=== PATIENT | male | born 1945 | race African-American/Black ===

== ENCOUNTER → 2016-09-22 | Outpatient (CLI) | payer OTHER, MEDICAID ==
[2016-06-08 13:45] VITALS: BP 140/70
--- NOTE | 2016-09-22 12:02 | RAD ---
HISTORY: Frontal sinusitis, right side sinus pain Study: Sinuses three view Comparison: None Findings: The frontal, ethmoid, sphenoid, and left maxillary sinuses are clear. There is mucosal thickening li stanton inflammatory in origin in the right maxillary sinus. No air-fluid level is identified. IMPRESSION: Inflammatory mucosal thickening in the right maxillary sinus The remainder of the paranasal sinuses are clear. Reported By:
[2016-09-22 12:16] LABS: BASOPHILS % (AUTO) 0.5 % (0.2-1.0); EOSINOPHILS # (AUTO) 0.3 x10^3/uL (0.0-0.2); EOSINOPHILS % (AUTO) 5.1 % (0.9-2.9); HEMOGLOBIN 11.9 g/dL (13.5-18.0); LYMPHOCYTES # (AUTO) 1.5 X10^3/uL (1.3-2.9); LYMPHOCYTES % (AUTO) 25.6 % (21.0-51.0); MEAN CORPUSCULAR HEMOGLOBIN 28.2 pg (27.0-34.0); MEAN CORPUSCULAR HGB CONC 32.2 g/dL (33.0-35.0); MEAN CORPUSCULAR VOLUME 87.6 fL (80.0-100.0); MONOCYTES # (AUTO) 0.5 x10^3/uL (0.3-0.8); MONOCYTES % (AUTO) 9.1 % (0.0-13.0); NEUTROPHILS # (AUTO) 3.6 x10^3/uL (2.2-4.8); NEUTROPHILS % (AUTO) 59.7 % (42.0-75.0); PLATELET COUNT 191 X10^3/uL (150.0-450.0); RED BLOOD COUNT 4.22 X10^6/uL (4.7-6.0); RED CELL DISTRIBUTION WIDTH 21.7 % (11.6-16.5)
[2016-09-22 12:31] LABS: ALANINE AMINOTRANSFERASE 11 Units/L (12-78); ALBUMIN 3.2 g/dL (3.4-5.0); ALKALINE PHOSPHATASE 99 Units/L (46-116); ASPARTATE AMINO TRANSFERASE 13 Units/L (15-37); BLOOD UREA NITROGEN 10 mg/dL (7-18); CALCIUM 8.2 mg/dL (8.5-10.1); CARBON DIOXIDE 31.5 mmol/L (21-32); CHLORIDE 107 mmol/L (98-107); COR CA(FOR HYPOALB) 8.8 mg/dL (8.5-10.1); GLUCOSE 99 mg/dL (65-99); SODIUM 145 mmol/L (136-145); T4 (THYROXINE) 8.7 ug/dL (4.7-13.3); TOTAL PROTEIN 8.3 g/dL (6.4-8.2); TSH (3RD GENERATION) 0.581 uIU/mL (0.358-3.74); eGFR BLACK RACES > 60 (>60); eGFR NON BLACK RACES > 60 (>60)
[2016-09-22 12:39] LABS: ANISOCYTOSIS 1+; PLATELET MORPHOLOGY COMMENT NORMAL (NORMAL)
[2016-09-22 13:00] LABS: ERYTHROCYTE SEDIMENTATION RATE 30 MM/HOUR (0-15)
== END ==
LOC: LAB 11:22
PROVIDERS: ATTEND Nurse Practitioner Family
DX: J01.80 Other acute sinusitis (principal); R63.4 Abnormal weight loss
CPT/HCPCS: 36415; 70220; 80053; 84436; 84443; 85025; 85652; 86140

== ENCOUNTER → 2016-09-25 | Outpatient (CLI) | payer OTHER, MEDICAID ==
[2016-06-08 13:45] VITALS: BP 140/70
== END ==
LOC: LAB 08:40
PROVIDERS: ATTEND Nurse Practitioner Family
DX: R63.4 Abnormal weight loss (principal)
CPT/HCPCS: 82270; 87045; 87338; 87427; 87493; 87899

== ENCOUNTER → 2016-11-29 | Outpatient (CLI) | payer OTHER, MEDICAID ==
[2016-06-08 13:45] VITALS: BP 140/70
[2016-11-29 08:55] LABS: BASOPHILS % (AUTO) 0.8 % (0.2-1.0); EOSINOPHILS # (AUTO) 0.3 x10^3/uL (0.0-0.2); EOSINOPHILS % (AUTO) 4.3 % (0.9-2.9); HEMATOCRIT 35.9 % (42.0-54.0); HEMOGLOBIN 11.4 g/dL (13.5-18.0); LYMPHOCYTES # (AUTO) 1.4 X10^3/uL (1.3-2.9); LYMPHOCYTES % (AUTO) 23.1 % (21.0-51.0); MEAN CORPUSCULAR HEMOGLOBIN 26.8 pg (27.0-34.0); MEAN CORPUSCULAR HGB CONC 31.7 g/dL (33.0-35.0); MEAN CORPUSCULAR VOLUME 84.4 fL (80.0-100.0); MEAN PLATELET VOLUME 8.4 fL (7.4-11.0); MONOCYTES # (AUTO) 0.5 x10^3/uL (0.3-0.8); MONOCYTES % (AUTO) 7.7 % (0.0-13.0); NEUTROPHILS # (AUTO) 3.8 x10^3/uL (2.2-4.8); NEUTROPHILS % (AUTO) 64.1 % (42.0-75.0); PLATELET COUNT 220 X10^3/uL (150.0-450.0); RED BLOOD COUNT 4.25 X10^6/uL (4.7-6.0); RED CELL DISTRIBUTION WIDTH 17.7 % (11.6-16.5); WHITE BLOOD COUNT 5.9 X10^3/uL (3.6-10.0)
[2016-11-29 09:18] LABS: ALANINE AMINOTRANSFERASE 13 Units/L (12-78); ALBUMIN 3.3 g/dL (3.4-5.0); ALKALINE PHOSPHATASE 102 Units/L (46-116); ASPARTATE AMINO TRANSFERASE 14 Units/L (15-37); BLOOD UREA NITROGEN 16 mg/dL (7-18); CALCIUM 8.6 mg/dL (8.5-10.1); CARBON DIOXIDE 29.2 mmol/L (21-32); CHLORIDE 107 mmol/L (98-107); CHOL/HDL RATIO 1.7 (0.0-5.0); CHOLESTEROL 113 mg/dL (0-200); COR CA(FOR HYPOALB) 9.2 mg/dL (8.5-10.1); GLUCOSE 92 mg/dL (65-99); HDL CHOLESTEROL 65 mg/dL (40-60); SODIUM 144 mmol/L (136-145); T4 (THYROXINE) 10.4 ug/dL (4.7-13.3); TOTAL PROTEIN 8.6 g/dL (6.4-8.2); TRIGLYCERIDES 27 mg/dL (0-150); TSH (3RD GENERATION) 0.928 uIU/mL (0.358-3.74); eGFR BLACK RACES > 60 (>60); eGFR NON BLACK RACES > 60 (>60)
[2016-11-29 09:35] LABS: ERYTHROCYTE SEDIMENTATION RATE 24 MM/HOUR (0-15)
[2016-11-29 10:09] LABS: TOTAL PSA 0.48 ng/mL (0.13-4.0)
== END ==
LOC: LAB 08:04
PROVIDERS: ATTEND Nurse Practitioner Family
DX: E78.4 Other hyperlipidemia (principal); D50.8 Other iron deficiency anemias; I10 Essential (primary) hypertension; R53.83 Other fatigue; M54.2 Cervicalgia
CPT/HCPCS: 36415; 80053; 80061; 82306; 84153; 84436; 84443; 85025; 85652; 86140

== ENCOUNTER → 2016-12-06 | Outpatient (CLI) | payer OTHER, MEDICAID ==
[2016-06-08 13:45] VITALS: BP 140/70
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
== END | disposition home or self-care (01) ==
LOC: RAD 14:12
PROVIDERS: ATTEND Nurse Practitioner Family
DX: M50.23 Other cervical disc displacement, cervicothoracic region (principal); M48.02 Spinal stenosis, cervical region
CPT/HCPCS: 72141

== ENCOUNTER 2016-12-14 08:02 | Day surgery (SDC) | payer OTHER, MEDICAID ==
[2016-12-14] MEDS ORDERED: D5 LR 1000 ML 1,000 ML IV ONE (08:59)
[2016-12-14] MEDS ORDERED: DIPRIVAN VIAL 20 ML ONE (10:49)
[2016-12-14 11:19] VITALS: BP 167/73
== END 2016-12-14 11:23 | disposition home or self-care (01) ==
LOC: SURG1 08:02
PROVIDERS: ATTEND Internal Medicine Gastroenterology
PROC: 0DB68ZX Excision of Stomach, Via Natural or Artificial Opening Endoscopic, Diagnostic (ICD-10-PCS; principal; 2016-12-14 13:45)
PROC: 0DJ08ZZ Inspection of Upper Intestinal Tract, Via Natural or Artificial Opening Endoscopic (ICD-10-PCS; principal; 2016-12-14 13:45)
PROC: 0W3P8ZZ Control Bleeding in Gastrointestinal Tract, Via Natural or Artificial Opening Endoscopic (ICD-10-PCS; principal; 2016-12-14 13:45)
PROC: 0DB88ZX Excision of Small Intestine, Via Natural or Artificial Opening Endoscopic, Diagnostic (ICD-10-PCS; principal; 2016-12-14 13:45)
DX: D50.8 Other iron deficiency anemias (principal); R10.13 Epigastric pain; K29.60 Other gastritis without bleeding; K25.9 Gastric ulcer, unspecified as acute or chronic, without hemorrhage or perforation; K20.8 Other esophagitis; Q27.33 Arteriovenous malformation of digestive system vessel
CPT/HCPCS: A4217; J3490; J7120

== ENCOUNTER → 2017-01-16 | Outpatient (CLI) | payer OTHER, MEDICAID ==
[~2017-01-16] MED LIST: NS 100 ML IV 100 ML IV ONE
[2017-01-16 10:28] LABS: CREATININE 0.83 mg/dL (0.70-1.30)
--- NOTE | 2017-01-16 14:07 | CT ---
HISTORY: Occipital headache. Study: CT brain with and without contrast Comparison: None. Technique: Multiple axial images of the brain were obtained from the skull base to the vertex before and after the administration of IV contrast. Dose reduction techniques including Automated Exposure Control ( AEC) and adjustment of mA and kV were utilized. Findings: Age related cortical atrophy and chronic small vessel ischemic changes. No acute intraparenchymal he morrhage or mass can be identified. No extra-axial fluid collections are seen. No alteration in th e attenuation of the brain parenchyma can be identified to suggest acute or subacute ischemic change . The ventricular system is symmetric and nondilated. Mild mucosal thickening in the visualized par anasal sinuses. The mastoid air cells are clear. Visualized vasculature appears normal. No areas of abnormal contrast enhancement. IMPRESSION: 1. Unremarkable CT of the brain with and without contrast. 2. Sinus disease as above. Reported By:
== END ==
LOC: RAD 09:51
PROVIDERS: ATTEND Nurse Practitioner Family
DX: R51 Headache (principal)
CPT/HCPCS: 36415; 70470; 82565; 84520; A4222

== ENCOUNTER 2017-02-01 03:39 | Emergency (ER) | payer OTHER, MEDICAID ==
[2017-02-01 03:55] VITALS: BMI 20.4
[2017-02-01] MEDS ORDERED: DUONEB 0.5 MG/3 MG NEB ONE (04:04)
[2017-02-01] MEDS ORDERED: SOLU-Medrol 125 MG VIAL IVP ONE (04:04)
--- NOTE | 2017-02-01 04:05 | DR.GENAD ---
HPI - PCP Primary Care Physician: CYNTHIA NESS - Complaint/Symptoms Chief Complaint:: SOB AND COUGH, PT STATES FOR WEEKS, Self Treatment fo Chief Complaint: NONE - Nurses notes reviewed Nurses Notes Review: Yes - Source History Provided: Patient - Mode of Arrival Mode of Arrival: EMS - Timing Onset of Chief Complaint: 02/01/17 Came on: Suddenly - Duration Duration: Constant Duration: Days - Severity Severity: Moderate PMH - PMH Past Medical History: Yes Past Medical History: Hypertension Past Surgical History: No - Family History History of Family Medical Conditions: No - Social History Does patient currently use any type of tobacco product: Yes Have you used tobacco products in the last 12 months: Yes Type of Tobacco Use: Cigarettes Does any household member use tobacco: No Alcohol Use: Occasionally Do you use any recreational Drugs:: No Lives With: Friend Lives Where: Home - infectious screening In the last 2 months have you had wt loss of >10#?: NO Have you had fever, night sweats or hemotysis?: No Have you traveled outside the country in the last 6 months?: No Isolation: Standard ROS - Review of Systems Constitutional: Weakness, Fatigue. negative: Chills, Fever, Loss of Appetite Eyes: No Symptoms Reported. negative: Eye Pain, Discharge ENTM: Nose Congestion. negative: Ear Pain, Nose Discharge, Throat Pain Respiratoy: Productive Cough, Short of Breath, Wheezing. negative: Non- Productive Cough, Hemoptysis Cardiovascular: Chest Pain. negative: Edema, Palpitations Gastrointestinal/Abdominal: No Symptoms Reported. negative: Abdominal Pain, Diarrhea, Nausea, Vomiting Genitourinary: No Symptoms Reported. negative: Dysuria, Frequency, Hematuria Neurological: Headache, Weakness, Dizziness Musculoskeletal: Muscle Pain Integumentary: No Symptoms Reported Hematologic/Lymphatic: No Symptoms Reported Endocrine: No Symptoms Reported All Other Systems: Reviewed and Negative PE - Vital Signs Vitals: Temperature 98.0 F Pulse Rate [Right Brachial] 63 Pulse Rate 67 Respiratory Rate 16 Blood Pressure [Left Arm] 158/72 Blood Pressure 177/97 O2 Sat by Pulse Oximetry 100 - General Limitations: No Limitations General Appearance: Alert - Head Head Exam: Normal Inspection - Eyes Eye exam: Normal Appearance - ENT ENT Exam: Normal External Ear Exam External Ear Exam: Normal External Inspection TM/Canal Exam: Bilateral Normal Nose Exam: Normal Nose Exam Mouth Exam: Normal Inspection Throat Exam: Normal Inspection - Neck Neck Exam: Trachea Midline. negative: Tenderness, Meningismus, Lymphadenopathy - Chest Chest Inspection: Symmetric Chest Wall Rise - Respiratory Respiratory Exam: Respiratory Distress Respiratory Exam: Bilateral Clear to Auscultation, Bilateral Rhonchi, Upper Clear to Auscultation, Lower Clear to Auscultation, Lower Rhonchi - Cardiovascular Cardiovascular Exam: Regular Rate, Normal Rhythm, Normal Heart Sounds - Abdominal Exam Abdominal Exam: Normal Bowel Sounds, Soft. negative: Tenderness - Extremities Extremities Exam: Normal Inspection - Back Back Exam: Normal Inspection - Neurologic Neurological Exam: Alert, Oriented X3, CN II-XII Intact, Normal Gait, Reflexes Normal. negative: Motor Sensory Deficit - Psychiatric Psychiatric Exam: Normal Affect, Normal Mood - Skin Skin Exam: Normal Color MDM - Additional Information Additional Information Obtained From: Family - Differential Diagnosis Differential Diagnosis: RESPIRATORY DISTRESS, PNEUMONIA, BRONCHITIS, CHF Course - Treatment Treatment: SEE ORDERS. NEB TREATMENT, IV SOLUMEDROL AND IV ROCEPHIN IN ED. - Reevaluation 1st: Improved - Consultation Consultation Comments: RADIOLOGY CALLED.CT CHEST ORDERED. - Education/Counseling Education/Counseling: Patient, Family, Education Educated On: Treatment, Diagnosis, Needs for Follow Up ROR - Labs Reviewed Laboratory Results Reviewed?: Yes Result Diagrams: 02/01/17 04:10 02/01/17 04:10 Laboratory: WBC 6.0 X10^3/uL (3.6-10.0) 02/01/17 04:10 RBC 4.56 X10^6/uL (4.7-6.0) L 02/01/17 04:10 Hgb 13.2 g/dL (13.5-18.0) L 02/01/17 04:10 Hct 40.6 % (42.0-54.0) L 02/01/17 04:10 MCV 89.0 fL (80.0-100.0) 02/01/17 04:10 MCH 29.0 pg (27.0-34.0) 02/01/17 04:10 MCHC 32.5 g/dL (33.0-35.0) L 02/01/17 04:10 RDW 19.8 % (11.6-16.5) H 02/01/17 04:10 Plt Count 201 X10^3/uL (150.0-450.0) 02/01/17 04:10 MPV 8.7 fL (7.4-11.0) 02/01/17 04:10 Neut % 53.4 % (42.0-75.0) 02/01/17 04:10 Lymph % 32.6 % (21.0-51.0) 02/01/17 04:10 [place] % 11.4 % (0.0-13.0) 02/01/17 04:10 Eos % 1.8 % (0.9-2.9) 02/01/17 04:10 Baso % 0.8 % (0.2-1.0) 02/01/17 04:10 Neut # 3.2 x10^3/uL (2.2-4.8) 02/01/17 04:10 Lymph # 1.9 X10^3/uL (1.3-2.9) 02/01/17 04:10 [place] # 0.7 x10^3/uL (0.3-0.8) 02/01/17 04:10 Eos # 0.1 x10^3/uL (0.0-0.2) 02/01/17 04:10 Baso # 0.0 X10^3/uL (0.0-0.1) 02/01/17 04:10 Absolute Nucleated RBC 0.1 /100WBC 02/01/17 04:10 Sodium 140 mmol/L (136-145) 02/01/17 04:10 Corrected Sodium TNP 02/01/17 04:10 Potassium 4.3 mmol/L (3.5-5.1) 02/01/17 04:10 Chloride 105 mmol/L (98-107) 02/01/17 04:10 Carbon Dioxide 30.8 mmol/L (21-32) 02/01/17 04:10 BUN 30 mg/dL (7-18) H 02/01/17 04:10 Creatinine 1.11 mg/dL (0.70-1.30) 02/01/17 04:10 Est GFR (MDRD) Af Amer > 60 (>60) 02/01/17 04:10 Est GFR (MDRD) Non-Af > 60 (>60) 02/01/17 04:10 Glucose 94 mg/dL (65-99) 02/01/17 04:10 Calcium 8.5 mg/dL (8.5-10.1) 02/01/17 04:10 Corrected Calcium 9.1 mg/dL (8.5-10.1) 02/01/17 04:10 Total Bilirubin 0.20 mg/dL (0.2-1.0) 02/01/17 04:10 AST 14 Units/L (15-37) L 02/01/17 04:10 ALT 14 Units/L (12-78) 02/01/17 04:10 Alkaline Phosphatase 137 Units/L (46-116) H 02/01/17 04:10 Creatine Kinase 68 Units/L (39-308) 02/01/17 04:10 CK-MB (CK-2) < 1.0 ng/mL (0-4.0) 02/01/17 04:10 CK/CKMB % Calc 1.5 % (<4) 02/01/17 04:10 Troponin I 0.02 ng/mL (0-1.5) 02/01/17 04:10 B-Natriuretic Peptide 8.2 pg/mL (0-79) 02/01/17 04:10 Total Protein 8.1 g/dL (6.4-8.2) 02/01/17 04:10 Albumin 3.2 g/dL (3.4-5.0) L 02/01/17 04:10 Globulin 4.9 g/dL (2.5-4.5) H 02/01/17 04:10 Albumin/Globulin Ratio 0.7 Ratio (1.1-2.1) L 02/01/17 04:10 - XRAY XRAY Interpreted by: Radiologist XRAY Findings: REPORT DISCUSS WITH PATIENT AND HIS FAMILY. - EKG Rhythm: NSR (EKG NOTED) - Diagnosis Discharge Problem: Bronchitis, Respiratory distress, HTN (hypertension), Plague, pneumonic - Discharge Plan Disposition: 01 HOME, SELF-CARE Condition: Stable Prescriptions: Azithromycin [ZITHROMAX Tab 250 mg *] 1 dose PO DAILY #6 tab Benzonatate [Tessalon Perle] 100 mg PO TID PRN #15 cap PRN Reason: Cough - Follow ups/Referrals Follow ups/Referrals: NFD,None [Primary Care Provider] - 3 days - Instructions Instructions: Shortness of Breath, [id number], Acute Bronchitis, [id number] Additional Instructions: RETURN TO ED IF WORSE.
[2017-02-01] MEDS ORDERED: SOLU-Medrol 125 MG VIAL ONE (04:08)
[2017-02-01] MEDS ORDERED: DUONEB 0.5 MG/3 MG ONE (04:10)
[2017-02-01 04:32] LABS: BASOPHILS % (AUTO) 0.8 % (0.2-1.0); EOSINOPHILS # (AUTO) 0.1 x10^3/uL (0.0-0.2); EOSINOPHILS % (AUTO) 1.8 % (0.9-2.9); HEMATOCRIT 40.6 % (42.0-54.0); HEMOGLOBIN 13.2 g/dL (13.5-18.0); LYMPHOCYTES # (AUTO) 1.9 X10^3/uL (1.3-2.9); LYMPHOCYTES % (AUTO) 32.6 % (21.0-51.0); MEAN CORPUSCULAR HGB CONC 32.5 g/dL (33.0-35.0); MEAN PLATELET VOLUME 8.7 fL (7.4-11.0); MONOCYTES # (AUTO) 0.7 x10^3/uL (0.3-0.8); MONOCYTES % (AUTO) 11.4 % (0.0-13.0); NEUTROPHILS # (AUTO) 3.2 x10^3/uL (2.2-4.8); NEUTROPHILS % (AUTO) 53.4 % (42.0-75.0); PLATELET COUNT 201 X10^3/uL (150.0-450.0); RED BLOOD COUNT 4.56 X10^6/uL (4.7-6.0); RED CELL DISTRIBUTION WIDTH 19.8 % (11.6-16.5)
[2017-02-01 04:42] LABS: BLOOD UREA NITROGEN 30 mg/dL (7-18); CALCIUM 8.5 mg/dL (8.5-10.1); CARBON DIOXIDE 30.8 mmol/L (21-32); CHLORIDE 105 mmol/L (98-107); CREATININE 1.11 mg/dL (0.70-1.30); GLUCOSE 94 mg/dL (65-99); SODIUM 140 mmol/L (136-145); TROPONIN I 0.02 ng/mL (0-1.5); eGFR BLACK RACES > 60 (>60); eGFR NON BLACK RACES > 60 (>60)
[2017-02-01 04:47] LABS: ALANINE AMINOTRANSFERASE 14 Units/L (12-78); ALBUMIN 3.2 g/dL (3.4-5.0); ALKALINE PHOSPHATASE 137 Units/L (46-116); ASPARTATE AMINO TRANSFERASE 14 Units/L (15-37); CKMB % 1.5 % (<4); COR CA(FOR HYPOALB) 9.1 mg/dL (8.5-10.1); CREATINE KINASE 68 Units/L (39-308); CREATINE KINASE MB < 1.0 ng/mL (0-4.0); TOTAL PROTEIN 8.1 g/dL (6.4-8.2)
[2017-02-01 04:50] LABS: B-TYPE NATRIURETIC PEPTIDE 8.2 pg/mL (0-79)
[2017-02-01 05:58] VITALS: BP 158/72
--- NOTE | 2017-02-01 06:24 | RAD ---
HISTORY: Chest pain, respiratory difficulty Study: Chest one view Comparison: None Findings: The heart is within normal limits in size. The sandra are normal. Lungs are mildly hyperinflated but f ree of acute alveolar infiltrates. Pleural calcifications are present on the left suggestive of poss ible prior asbestos exposure or prior hemo thorax. There is a nodular density in the right lung apex which could be pleural or parenchymal in origin. Chest CT with contrast is recommended for further evaluation. IMPRESSION: No acute infiltrates Hyperinflation Right apical lung nodule for which further evaluation with chest CT with contrast is recommended. Pleural calcifications on the left suggestive of prior asbestos exposure Reported By:
[2017-02-01] MEDS ORDERED: ROCEPHIN VIAL 1 GM 1 GM in NS 50 ML IV + SPIKE MINIBAG* 50 ML IV ONE (06:46)
[2017-02-01] MEDS ORDERED: ROCEPHIN 1 GM IV PREMIX * OUT OF STOCK 50 ML IV ONE (06:55)
[2017-02-01] MEDS ORDERED: NS 100 ML IV 100 ML IV ONE (08:04)
--- NOTE | 2017-02-01 08:39 | CT ---
Chest CT with contrast Indication: Pulmonary nodule, pleural calcification Technique: Helical CT images of the chest were obtained with IV contrast. Reformatted images in the coronal and sagittal planes were also generated for review. Comparison: Chest radiograph from earlier today Findings: There are shotty right paratracheal lymph nodes, none pathologically enlarged. No hilar or axillary lymphadenopathy is seen. The heart size is normal without pericardial effusion. Moderate c oronary atherosclerosis and mild calcification of the aorta and proximal great vessels is noted. Donte tral airways are patent. There are moderate emphysematous changes bilaterally. There is biapical pleural scarring, which is s omewhat nodular in appearance. The most conspicuous nodular opacity is within the right lung apex, m easuring 1.3 cm on image 10, series 4. Additional areas of linear parenchymal scarring are scattered throughout the remainder of the lungs. There is plaque-like calcified pleural thickening along the posterior inferior left lower lobe. No focal consolidation or additional suspicious nodule or mass i s identified. No pneumothorax or pleural effusion is seen. Limited images of the upper abdomen demonstrate mild thickening of the left adrenal gland without di screte nodule, suggestive for benign hyperplasia. No aggressive osseous lesions are identified. Impression: 1. Emphysema with biapical pleural scarring. Adjacent nodular opacities, more conspicuous on the rig ht also likely reflect pleural parenchymal scarring. However, given evidence of emphysema, short-ter m interval follow up CT in 3 months or further evaluation with PET-CT is recommended. 2. Calcified left pleural plaques, either related to prior asbestos exposure or talc pleurodesis. Co rrelation with patient history is recommended. 3. Additional incidental findings as above. Reported By:
== END 2017-02-01 08:50 | disposition home or self-care (01) ==
LOC: ER 03:39
DX: J40 Bronchitis, not specified as acute or chronic (principal); R06.00 Dyspnea, unspecified; I10 Essential (primary) hypertension; A20 Plague; J43.9 Emphysema, unspecified
CPT/HCPCS: 36415; 71010; 71260; 80053; 82550; 82553; 83880; 84484; 85025; 93005; 93010; 94640; 96365; 96374; 96375; 99283; A4222; J0696; J2930; J7620

== ENCOUNTER 2017-04-13 11:40 | Emergency (ER) | payer OTHER, MEDICAID ==
[2017-04-13 11:58] VITALS: BP 130/70; BMI 20.2
--- NOTE | 2017-04-13 12:33 | DR.UPM ---
HPI - Time Seen Time seen: 12:28 - PCP Primary Care Physician: makenzie daniels - Complaint Chief Complaint Doctors Comments: Patient states that on last night notics pain in inguinal area and testicle hurting. He denies trauma of dysuria or penile discharge. Chief Complaint:: PT C/O URINATING BLOOD LAST NIGHT AND HURTING TO HIS RIGHT TESTICAL, RIGHT FLANK, RIGHT GROIN AREA... THAT STARTED LAST NOTED AND HE NOTICED THE BLOOD THIS AM . - Source History Provided: Patient - Mode of Arrival Mode of Arrival: Ambulatory - Timing Onset of Chief Complaint: 04/12/17 PMH - PMH Past Medical History: Yes Past Medical History: Hypertension Past Surgical History: No - Family History History of Family Medical Conditions: No - Social History Does patient currently use any type of tobacco product: Yes Have you used tobacco products in the last 12 months: Yes Type of Tobacco Use: Cigarettes How many years tobacco product used: 40 Does any household member use tobacco: No Alcohol Use: None, Rarely Do you use any recreational Drugs:: No Lives With: Spouse, Family Lives Where: Home - infectious screening In the last 2 months have you had wt loss of >10#?: NO Have you had fever, night sweats or hemotysis?: No Have you traveled outside the country in the last 6 months?: No Isolation: Standard ROS - Review of Systems Eyes: No Symptoms Reported ENTM: No Symptoms Reported Respiratoy: No Symptoms Reported Cardiovascular: No Symptoms Reported Gastrointestinal/Abdominal: No Symptoms Reported Genitourinary: Hematuria Neurological: No Symptoms Reported Musculoskeletal: No Symptoms Reported Integumentary: No Symptoms Reported Hematologic/Lymphatic: No Symptoms Reported Endocrine: No Symptoms Reported Psychiatric: No Symptoms Reported All Other Systems: Reviewed and Negative PE - Vital Signs Vitals: Temperature 98.3 F Pulse Rate 62 Respiratory Rate 22 Blood Pressure [Left Arm] 158/72 Blood Pressure 130/70 O2 Sat by Pulse Oximetry 97 - General Limitations: No Limitations General Appearance: Alert, In No Apparent Distress - Head Head Exam: Normal Inspection, Atraumatic - Eyes Eye exam: Normal Appearance, PERRL, EOMI - ENT ENT Exam: Normal Exam - Neck Neck Exam: Normal Inspection, Full ROM - Chest Chest Inspection: Normal Inspection - Respiratory Respiratory Exam: Normal Lung Sounds Bilat Respiratory Exam: Bilateral Clear to Auscultation - Cardiovascular Cardiovascular Exam: Regular Rate - Abdominal Exam Abdominal Exam: Normal Inspection Abdominal Tenderness: negative: RUQ, RLQ, LUQ, LLQ, Epigastrium, Suprapubic, Diffuse, Mild, Moderate, Severe, Other - Rectal Rectal Exam: Deferred - Genitourinary Exam: Male: Normal Inspection Scrotal Exam: Normal: Left, Epididymal Tenderness: Right - Extremities Extremities Exam: Normal Inspection, Full ROM, Other (ABK) - Back Back Exam: Normal Inspection MDM - Differential Diagnosis Differential Diagnosis: Prostatitis, Urethritis, UTI ROR - Labs Reviewed Laboratory Results Reviewed?: Yes (Urine RBC TNTC,WBC 25-35, Leukocyte Esterace 3+) Laboratory: Specimen Type Clean catch urine 04/13/17 12:19 Urine Color Red (YELLOW) 04/13/17 12:19 Urine Appearance Turbid (CLEAR) 04/13/17 12:19 Urine pH 5.0 (5.0 - 8.0) 04/13/17 12:19 Ur Specific [place] 1.025 (1.000-1.030) 04/13/17 12:19 Urine Protein 3+ (NEGATIVE) 04/13/17 12:19 Urine Glucose (UA) Negative (NEGATIVE) 04/13/17 12:19 Urine Ketones 1+ (NEGATIVE) 04/13/17 12:19 Urine Occult Blood 5+ (NEGATIVE) 04/13/17 12:19 Urine Nitrite Negative (NEGATIVE) 04/13/17 12:19 Urine Bilirubin Negative (NEGATIVE) 04/13/17 12:19 Urine Urobilinogen 1+ (NORMAL) 04/13/17 12:19 Ur Leukocyte Esterase 3+ (NEGATIVE) 04/13/17 12:19 Urine RBC Tntc /HPF (NEGATIVE) 04/13/17 12:19 Urine WBC 25 - 35 /HPF (NEGATIVE) 04/13/17 12:19 Ur Squamous Epith Cells Rare /HPF (NEGATIVE) 04/13/17 12:19 Amorphous Sediment 3+ /HPF (NEGATIVE) 04/13/17 12:19 Urine Bacteria Negative /HPF (NEGATIVE) 04/13/17 12:19 Ur Culture Indicated? Yes/culture set up 04/13/17 12:19 - Diagnosis Discharge Problem: Epididymitis - Discharge Plan Condition: Stable - Follow ups/Referrals Follow ups/Referrals: NFD,None [Primary Care Provider] - 3 days - Instructions
[2017-04-13 12:54] LABS: BILIRUBIN,URINE NEGATIVE (NEGATIVE); BLOOD/HEMOGLOBIN,URINE 5+ (NEGATIVE); GLUCOSE, URINE NEGATIVE (NEGATIVE); KETONES,URINE 1+ (NEGATIVE); LEUKOCYTE ESTERASE ,URINE 3+ (NEGATIVE); NITRITES,URINE NEGATIVE (NEGATIVE); PROTEIN,URINE 3+ (NEGATIVE); UROBILINOGEN,URINE 1+ (NORMAL)
[2017-04-13 12:55] LABS: APPEARANCE,URINE TURBID (CLEAR); COLOR,URINE RED (YELLOW)
[2017-04-13 12:56] LABS: AMORPHOUS SEDIMENT,UR 3+ /HPF (NEGATIVE); BACTERIA,URINE NEGATIVE /HPF (NEGATIVE); RBC,URINE TNTC /HPF (NEGATIVE); SQUAMOUS EPITHELIAL CELL,UR RARE /HPF (NEGATIVE)
== END 2017-04-13 13:18 | disposition home or self-care (01) ==
LOC: ER 11:58
DX: N45.1 Epididymitis (principal); A49.8 Other bacterial infections of unspecified site
CPT/HCPCS: 81001; 87086; 87088; 87186; 99282

== ENCOUNTER → 2017-05-23 | Outpatient (CLI) | payer OTHER, MEDICAID ==
[2017-05-23 08:44] LABS: BASOPHILS # (AUTO) 0.1 X10^3/uL (0.0-0.1); BASOPHILS % (AUTO) 1.1 % (0.2-1.0); EOSINOPHILS # (AUTO) 0.2 x10^3/uL (0.0-0.2); HEMATOCRIT 38.5 % (42.0-54.0); HEMOGLOBIN 12.4 g/dL (13.5-18.0); LYMPHOCYTES # (AUTO) 1.6 X10^3/uL (1.3-2.9); LYMPHOCYTES % (AUTO) 34.7 % (21.0-51.0); MEAN CORPUSCULAR HEMOGLOBIN 29.1 pg (27.0-34.0); MEAN CORPUSCULAR HGB CONC 32.3 g/dL (33.0-35.0); MEAN CORPUSCULAR VOLUME 90.1 fL (80.0-100.0); MEAN PLATELET VOLUME 8.4 fL (7.4-11.0); MONOCYTES # (AUTO) 0.4 x10^3/uL (0.3-0.8); MONOCYTES % (AUTO) 8.1 % (0.0-13.0); NEUTROPHILS # (AUTO) 2.4 x10^3/uL (2.2-4.8); NEUTROPHILS % (AUTO) 51.1 % (42.0-75.0); PLATELET COUNT 167 X10^3/uL (150.0-450.0); RED BLOOD COUNT 4.28 X10^6/uL (4.7-6.0); WHITE BLOOD COUNT 4.7 X10^3/uL (3.6-10.0)
[2017-05-23 09:11] LABS: ALANINE AMINOTRANSFERASE 10 Units/L (12-78); ALKALINE PHOSPHATASE 125 Units/L (46-116); ASPARTATE AMINO TRANSFERASE 21 Units/L (15-37); BLOOD UREA NITROGEN 11 mg/dL (7-18); CALCIUM 8.7 mg/dL (8.5-10.1); CARBON DIOXIDE 29.4 mmol/L (21-32); CHLORIDE 106 mmol/L (98-107); COR CA(FOR HYPOALB) 9.5 mg/dL (8.5-10.1); CREATININE 0.91 mg/dL (0.70-1.30); SODIUM 142 mmol/L (136-145); TOTAL PROTEIN 7.8 g/dL (6.4-8.2); eGFR BLACK RACES > 60 (>60); eGFR NON BLACK RACES > 60 (>60)
[2017-05-23 09:23] LABS: ERYTHROCYTE SEDIMENTATION RATE 19 MM/HOUR (0-15)
--- NOTE | 2017-05-28 10:01 | CT ---
HISTORY: Pulmonary nodule Study: CT of the chest Comparison: February 01, 2017 Technique: Serial axial images were obtained from the thoracic inlet to the upper abdomen with infusi on of IV contrast. Coronal and sagittal reformatted images were also submitted. Dose reduction techni ques including automated exposure control (AEC) and adjustment of mA and kV were utilized. Findings: Scattered lymph nodes are again seen within the mediastinum similar to prior exam. Atherosclerotic ch anges are seen within visualized coronary arteries and aorta. No significant pericardial effusion is appreciated. Emphysematous changes are again seen within both lungs. Biapical scarring/pleural thicke renny is noted and again demonstrates somewhat of a nodular appearance. The most conspicuous nodular o pacity is at the apex of the right lung measuring 1.7 cm on image 12 of series 5. By my measurements this finding also measured approximately 1.7 cm on prior study. The remaining ill-defined opacities w ithin both lung apices have also not significantly changed. The most conspicuous of these remaining n odular opacities are within the right upper lobe on images 15-18 of series 5. Calcified pleural plaqu es are again seen posteriorly and laterally and have not significantly changed. Additional scattered areas of atelectasis and/or scarring are seen within both lungs. Thickening of the left adrenal gland remains unchanged and may reflect hyperplasia. Degenerative changes are seen within the visualized s pine. IMPRESSION: No overall significant change since prior exam as noted above. Reported By:
== END ==
LOC: RAD 08:16
PROVIDERS: ATTEND Nurse Practitioner Family
DX: R91.1 Solitary pulmonary nodule (principal); M15.0 Primary generalized (osteo)arthritis; E53.8 Deficiency of other specified B group vitamins; I10 Essential (primary) hypertension
CPT/HCPCS: 36415; 71260; 80053; 82746; 85025; 85652; 86140; A4222

== ENCOUNTER → 2017-06-19 | Outpatient (CLI) | payer OTHER, MEDICAID ==
[2017-06-19 13:42] LABS: BASOPHILS # (AUTO) 0.1 X10^3/uL (0.0-0.1); BASOPHILS % (AUTO) 0.9 % (0.2-1.0); EOSINOPHILS # (AUTO) 0.2 x10^3/uL (0.0-0.2); EOSINOPHILS % (AUTO) 2.9 % (0.9-2.9); HEMATOCRIT 37.7 % (42.0-54.0); HEMOGLOBIN 12.2 g/dL (13.5-18.0); LYMPHOCYTES # (AUTO) 2.3 X10^3/uL (1.3-2.9); MEAN CORPUSCULAR HGB CONC 32.4 g/dL (33.0-35.0); MEAN CORPUSCULAR VOLUME 89.5 fL (80.0-100.0); MEAN PLATELET VOLUME 9.4 fL (7.4-11.0); MONOCYTES # (AUTO) 0.8 x10^3/uL (0.3-0.8); MONOCYTES % (AUTO) 12.5 % (0.0-13.0); NEUTROPHILS % (AUTO) 47.7 % (42.0-75.0); PLATELET COUNT 180 X10^3/uL (150.0-450.0); RED BLOOD COUNT 4.21 X10^6/uL (4.7-6.0); RED CELL DISTRIBUTION WIDTH 15.2 % (11.6-16.5); WHITE BLOOD COUNT 6.4 X10^3/uL (3.6-10.0)
== END ==
LOC: LAB 13:00
PROVIDERS: ATTEND Internal Medicine Gastroenterology
DX: K64.0 First degree hemorrhoids (principal)
CPT/HCPCS: 36415; 85025

== ENCOUNTER → 2017-06-20 | Outpatient (CLI) | payer OTHER, MEDICAID | LOC: LAB 08:54 | PROVIDERS: ATTEND Internal Medicine Gastroenterology | DX: K64.0 First degree hemorrhoids (principal) | CPT/HCPCS: 82270 ==

== ENCOUNTER → 2017-08-06 | Outpatient (CLI) | payer OTHER, MEDICAID ==
[2017-08-06 09:34] LABS: BASOPHILS % (AUTO) 0.6 % (0.2-1.0); EOSINOPHILS # (AUTO) 0.2 x10^3/uL (0.0-0.2); EOSINOPHILS % (AUTO) 3.6 % (0.9-2.9); HEMATOCRIT 37.1 % (42.0-54.0); HEMOGLOBIN 11.9 g/dL (13.5-18.0); LYMPHOCYTES # (AUTO) 1.7 X10^3/uL (1.3-2.9); LYMPHOCYTES % (AUTO) 28.7 % (21.0-51.0); MEAN CORPUSCULAR HEMOGLOBIN 28.7 pg (27.0-34.0); MEAN CORPUSCULAR HGB CONC 32.2 g/dL (33.0-35.0); MEAN CORPUSCULAR VOLUME 89.3 fL (80.0-100.0); MEAN PLATELET VOLUME 8.8 fL (7.4-11.0); MONOCYTES # (AUTO) 0.6 x10^3/uL (0.3-0.8); MONOCYTES % (AUTO) 9.8 % (0.0-13.0); NEUTROPHILS # (AUTO) 3.4 x10^3/uL (2.2-4.8); NEUTROPHILS % (AUTO) 57.3 % (42.0-75.0); PLATELET COUNT 175 X10^3/uL (150.0-450.0); RED BLOOD COUNT 4.16 X10^6/uL (4.7-6.0); RED CELL DISTRIBUTION WIDTH 15.7 % (11.6-16.5); WHITE BLOOD COUNT 5.9 X10^3/uL (3.6-10.0)
[2017-08-06 09:44] LABS: ALANINE AMINOTRANSFERASE 11 Units/L (12-78); ALBUMIN 2.9 g/dL (3.4-5.0); ALKALINE PHOSPHATASE 140 Units/L (46-116); ASPARTATE AMINO TRANSFERASE 16 Units/L (15-37); BLOOD UREA NITROGEN 12 mg/dL (7-18); CALCIUM 8.6 mg/dL (8.5-10.1); CARBON DIOXIDE 31.5 mmol/L (21-32); CHLORIDE 105 mmol/L (98-107); CHOL/HDL RATIO 1.7 (0.0-5.0); CHOLESTEROL 109 mg/dL (0-200); COR CA(FOR HYPOALB) 9.5 mg/dL (8.5-10.1); CREATININE 0.97 mg/dL (0.70-1.30); HDL CHOLESTEROL 66 mg/dL (40-60); SODIUM 144 mmol/L (136-145); TOTAL PROTEIN 7.7 g/dL (6.4-8.2); TRIGLYCERIDES 17 mg/dL (0-150); eGFR BLACK RACES > 60 (>60); eGFR NON BLACK RACES > 60 (>60)
[2017-08-06 10:28] LABS: IRON 41 ug/dL (50-175); TOTAL IRON BINDING CAPACITY 314 ug/dL (250-450)
== END ==
LOC: LAB 08:32
PROVIDERS: ATTEND Nurse Practitioner Family
DX: R35.8 Other polyuria (principal); E53.8 Deficiency of other specified B group vitamins; D50.8 Other iron deficiency anemias; Z86.39 Personal history of other endocrine, nutritional and metabolic disease; I10 Essential (primary) hypertension; E78.4 Other hyperlipidemia
CPT/HCPCS: 36415; 80053; 80061; 82306; 82746; 83540; 83550; 84153; 85025

== ENCOUNTER → 2017-08-22 | Outpatient (CLI) | payer OTHER, MEDICAID ==
[2017-08-22 08:28] LABS: ALANINE AMINOTRANSFERASE 11 Units/L (12-78); ALBUMIN 2.8 g/dL (3.4-5.0); ALKALINE PHOSPHATASE 117 Units/L (46-116); ASPARTATE AMINO TRANSFERASE 14 Units/L (15-37); BILIRUBIN,DIRECT 0.06 mg/dL (0-0.2); BLOOD UREA NITROGEN 14 mg/dL (7-18); CALCIUM 8.6 mg/dL (8.5-10.1); CARBON DIOXIDE 30.4 mmol/L (21-32); CHLORIDE 106 mmol/L (98-107); CHOL/HDL RATIO 1.8 (0.0-5.0); CHOLESTEROL 109 mg/dL (0-200); CREATININE 0.98 mg/dL (0.70-1.30); HDL CHOLESTEROL 59 mg/dL (40-60); SODIUM 141 mmol/L (136-145); TRIGLYCERIDES 29 mg/dL (0-150); eGFR BLACK RACES > 60 (>60); eGFR NON BLACK RACES > 60 (>60)
[2017-08-22 10:52] LABS: BASOPHILS % (AUTO) 0.4 % (0.2-1.0); EOSINOPHILS # (AUTO) 0.2 x10^3/uL (0.0-0.2); EOSINOPHILS % (AUTO) 3.6 % (0.9-2.9); HEMATOCRIT 36.8 % (42.0-54.0); HEMOGLOBIN 12.1 g/dL (13.5-18.0); LYMPHOCYTES # (AUTO) 1.8 X10^3/uL (1.3-2.9); LYMPHOCYTES % (AUTO) 32.5 % (21.0-51.0); MEAN CORPUSCULAR HEMOGLOBIN 29.1 pg (27.0-34.0); MEAN CORPUSCULAR HGB CONC 32.8 g/dL (33.0-35.0); MEAN CORPUSCULAR VOLUME 88.9 fL (80.0-100.0); MONOCYTES # (AUTO) 0.6 x10^3/uL (0.3-0.8); MONOCYTES % (AUTO) 10.4 % (0.0-13.0); NEUTROPHILS % (AUTO) 53.1 % (42.0-75.0); PLATELET COUNT 176 X10^3/uL (150.0-450.0); RED BLOOD COUNT 4.13 X10^6/uL (4.7-6.0); RED CELL DISTRIBUTION WIDTH 15.6 % (11.6-16.5); WHITE BLOOD COUNT 5.7 X10^3/uL (3.6-10.0)
== END ==
LOC: LAB 07:46
PROVIDERS: ATTEND Physician Assistant
DX: R07.9 Chest pain, unspecified (principal)
CPT/HCPCS: 36415; 80048; 80061; 80076; 85025

== ENCOUNTER 2019-03-03 10:28 | Inpatient (IN) ==
--- NOTE | 2019-03-03 11:40 | DR.EXTPAIN ---
HPI Time seen Time Seen by Provider: 03/03/19 11:39 PCP Primary Care Physician: NOAH AMAYA LOSS PREVENTION SPECIALIST HPI Comment HPI Comment: PATIENT IS 73YR OLD MALE IN THE EMERGENCY ROOMTES TO WITH INFECTED LEFT AKA. PATIENT HAD LEFT AKA DONE ONE MONTH AGO. STUMP IS DRAININF PVD.G PUS. PATIENT DENIES DIABETES. HISTORY HYPERTENSION. PAIN IS THROBBING, 8/10 AND RADIATES TO LEFT THIGH. PAIN WORSE TODAY. NO FEVER. HE HAVE HISTORY OF PVD. Complaint/Symptoms Chief Complaint Doctor Comments: INFECTED STUMP, POST AMPUTATION LEFT AKA. Chief Complaint:: PT STATES " I THINK MY STUMP IS INFECTED " Self Treatment fo Chief Complaint: PT STATES AN MD IN [place] REMOVED HIS LEG ABOUT A MONTH AGO . [place] Nurses notes reviewed Nurses Notes Review: Yes Source History Provided: Patient Mode of arrival Mode of Arrival: Ambulatory Timing Onset of Chief Complaint: 03/03/19 Context History of: None Associated signs and symptoms Associated Signs and Symptoms: Numbeness, Weakness, Pain, Swelling, Bruising and Other (PUS DRAINING OUT OF INFECTED WOUND.) Other history Other History: PVD, HYPERTENSION. PMH PMH Past Medical History: No Past Medical History: Hypertension Past Surgical History: Yes Surgical History: Angioplasty/Stents Past Surgical History Comment: LEFT AKA Family History History of Family Medical Conditions: Yes Family Medical History: Diabetes Mellitus and Hypertension Social History Does patient currently use any type of tobacco product: No Have you used tobacco products in the last 12 months: No Type of Tobacco Use: None Does any household member use tobacco: No Alcohol Use: None Do you use any recreational Drugs:: No Lives With: Family Lives Where: Home infectious screening Have you traveled outside the country in the last 6 months?: No Isolation: Standard ROS Review of Systems Constitutional: See HPI, Weakness and Fatigue; negative Fever Eyes: No Symptoms Reported ENTM: No Symptoms Reported Respiratoy: No Symptoms Reported and See HPI; negative Moist Cough, Short of Breath and Wheezing Cardiovascular: No Symptoms Reported and See HPI; negative Chest Pain, Edema and Palpitations Gastrointestinal/Abdominal: No Symptoms Reported and See HPI; negative Abdominal Pain, Constipation, Diarrhea, Nausea and Vomiting Genitourinary: No Symptoms Reported and See HPI; negative Dysuria, Frequency and Hematuria Neurological: No Symptoms Reported, See HPI, Numbness, Paresthesia and Weakness; negative Headache and Dizziness Musculoskeletal: No Symptoms Reported, See HPI, Back Pain, Joint Pain and Muscle Pain Integumentary: No Symptoms Reported, See HPI, Change in Color, Itching and Other (PUS DRAINAGE FROM ABOVE AMPUTATION STUMP LEFT.); negative Juandice Hematologic/Lymphatic: No Symptoms Reported, See HPI, Easy Bleeding and Easy Bruising; negative Swollen Glands and Lymphadenopathy Endocrine: No Symptoms Reported and See HPI; negative Increased Thirst, Increased Urine and Decreased Appetite Psychiatric: No Symptoms Reported and See HPI All Other Systems: Reviewed and Negative PE Vital Signs Vitals: Temperature 98.6 F Pulse Rate [Left Brachial] 78 Pulse Rate 66 Respiratory Rate 58 Blood Pressure [Left Arm] 141/83 Blood Pressure 110/53 O2 Sat by Pulse Oximetry 96 General Limitations: No Limitations General Appearance: Alert and In No Apparent Distress Head Head Exam: Normal Inspection, Atraumatic and Normocephalic Eyes Eye exam: Normal Appearance and PERRL; negative Scleral Icterus and Conjunctival Injection ENT ENT Exam: Normal Exam, Normal Oropharynx, Normal External Ear Exam and TM's Normal Bilaterally Neck Neck Exam: Normal Inspection and Trachea Midline; negative Tenderness and Lymphadenopathy Chest Chest Inspection: Normal Inspection and Tenderness; negative Symmetric Chest Wall Rise Respiratory Respiratory Exam: Normal Lung Sounds Bilat; negative Accessory Muscle Use, Chest Wall Tenderness and Respiratory Distress Respiratory Exam: Bilateral: Clear to Auscultation Cardiovascular Cardiovascular Exam: Regular Rate, Normal Rhythm and Normal Heart Sounds; negative Systolic Murmur and Diastolic Murmur Abdominal Exam Abdominal Exam: Normal Inspection, Normal Bowel Sounds and Soft; negative Tenderness Extremities Extremities Exam: Normal Inspection and Tenderness (INFECTED LEFT AKA LEFT DRAINING PUS) Back Back Exam: Normal Inspection Neurological Neurological Exam: Alert, Oriented X3 and CN II-XII Intact Psychiatric Psychiatric Exam: Normal Affect and Normal Mood Skin Type of Lesion: Abscess Distribution: LLE MDM Differential Diagnosis Differential Diagnosis: Contusion, Fracture, Sprain and Other (INFECTION OF LEFT AKA STUMP, OSTEOMYOLITIS.) COURSE Treatment Treatment: SEE ORDERS. Consultation Consultation Comments: DISCUSSED CASE WITH DR. RODRIGUES AND HE WILL ADMIT PATIENT. Education/Counseling Education/Counseling: Patient Educated On: Diagnosis and Needs for Follow Up ROR Labs Reviewed Laboratory Results Reviewed?: Yes Result Diagrams: 03/10/19 04:24 03/10/19 04:24 Laboratory: 03/03/19 12:15 Blood Blood Culture - Final 03/03/19 12:10 Blood Blood Culture - Final 03/05/19 12:20 Leg - Left Gram Stain - Final 03/05/19 12:20 Leg - Left Wound Culture - Final Proteus Mirabilis Methicillin Resis Staph Aureus 03/03/19 12:12 Leg - Left Gram Stain - Final 03/03/19 12:12 Leg - Left Wound Culture - Final Proteus Mirabilis Acinetobacter Baumanii/Haemoly WBC 5.5 X10^3/uL (3.6-10.0) 03/10/19 04:24 RBC 3.62 X10^6/uL (4.7-6.0) L 03/10/19 04:24 Hgb 10.4 g/dL (13.5-18.0) L 03/10/19 04:24 Hct 32.1 % (42.0-54.0) L 03/10/19 04:24 MCV 88.7 fL (80.0-100.0) 03/10/19 04:24 MCH 28.7 pg (27.0-34.0) 03/10/19 04:24 MCHC 32.4 g/dL (33.0-35.0) L 03/10/19 04:24 RDW 16.3 % (11.6-16.5) 03/10/19 04:24 Plt Count 189 X10^3/uL (150.0-450.0) 03/10/19 04:24 MPV 8.0 fL (7.4-11.0) 03/10/19 04:24 Neut % (Auto) 42.9 % (42.0-75.0) 03/10/19 04:24 Lymph % (Auto) 39.0 % (21.0-51.0) 03/10/19 04:24 [place] % (Auto) 9.0 % (0.0-13.0) 03/10/19 04:24 Eos % (Auto) 8.6 % (0.9-2.9) H 03/10/19 04:24 Baso % (Auto) 0.5 % (0.2-1.0) 03/10/19 04:24 Neut # (Auto) 2.4 x10^3/uL (2.2-4.8) 03/10/19 04:24 Lymph # (Auto) 2.1 X10^3/uL (1.3-2.9) 03/10/19 04:24 [place] # (Auto) 0.5 x10^3/uL (0.3-0.8) 03/10/19 04:24 Eos # (Auto) 0.5 x10^3/uL (0.0-0.2) H 03/10/19 04:24 Baso # (Auto) 0.0 X10^3/uL (0.0-0.1) 03/10/19 04:24 Absolute Nucleated RBC 0.1 /100WBC 03/10/19 04:24 ESR 58 MM/HOUR (0-15) H 03/03/19 12:10 Sodium 138 mmol/L (136-145) 03/10/19 04:24 Corrected Sodium TNP 03/10/19 04:24 Potassium 4.1 mmol/L (3.5-5.1) 03/10/19 04:24 Chloride 104 mmol/L (98-107) 03/10/19 04:24 Carbon Dioxide 26.6 mmol/L (21-32) 03/10/19 04:24 BUN 15 mg/dL (7-18) 03/10/19 04:24 Creatinine 0.93 mg/dL (0.70-1.30) 03/10/19 04:24 Est GFR (MDRD) Af Amer > 60 (>60) 03/10/19 04:24 Est GFR (MDRD) Non-Af > 60 (>60) 03/10/19 04:24 Glucose 90 mg/dL (65-99) 03/10/19 04:24 Calcium 8.3 mg/dL (8.5-10.1) L 03/10/19 04:24 Corrected Calcium 9.6 mg/dL (8.5-10.1) 03/10/19 04:24 Magnesium 1.7 mg/dL (1.7-2.9) 03/08/19 06:05 Total Bilirubin 0.20 mg/dL (0.2-1.0) 03/10/19 04:24 AST 15 Units/L (15-37) 03/10/19 04:24 ALT 6 Units/L (12-78) L 03/10/19 04:24 Alkaline Phosphatase 107 Units/L (46-116) 03/10/19 04:24 C-Reactive Protein 26.50 mg/L (0-3.0) H 03/03/19 12:10 Total Protein 7.8 g/dL (6.4-8.2) 03/10/19 04:24 Albumin 2.4 g/dL (3.4-5.0) L 03/10/19 04:24 Globulin 5.4 g/dL (2.5-4.5) H 03/10/19 04:24 Albumin/Globulin Ratio 0.4 Ratio (1.1-2.1) L 03/10/19 04:24 Specimen Type Random urine 03/03/19 12:07 Urine Color Yellow (YELLOW) 03/03/19 12:07 Urine Appearance Hazy (CLEAR) 03/03/19 12:07 Urine pH 5.0 (5.0 - 8.0) 03/03/19 12:07 Ur Specific [place] 1.025 (1.000-1.030) 03/03/19 12:07 Urine Protein 2+ (NEGATIVE) 03/03/19 12:07 Urine Glucose (UA) Negative (NEGATIVE) 03/03/19 12:07 Urine Ketones Negative (NEGATIVE) 03/03/19 12:07 Urine Occult Blood 4+ (NEGATIVE) 03/03/19 12:07 Urine Nitrite Negative (NEGATIVE) 03/03/19 12:07 Urine Bilirubin Negative (NEGATIVE) 03/03/19 12:07 Urine Urobilinogen 1+ (NORMAL) 03/03/19 12:07 Ur Leukocyte Esterase 2+ (NEGATIVE) 03/03/19 12:07 Urine RBC 5-10 /HPF (0-3) A 03/03/19 12:07 Urine WBC 3-5 /HPF (0-5) 03/03/19 12:07 Ur Squamous Epith Cells Negative /HPF (NEGATIVE) 03/03/19 12:07 Urine Bacteria Negative /HPF (NEGATIVE) 03/03/19 12:07 Urine Mucus Few /HPF (NEGATIVE) 03/03/19 12:07 Urine Yeast Rare /HPF (NEGATIVE) 03/03/19 12:07 Ur Culture Indicated? No/not indicated 03/03/19 12:07 Random Vancomycin 6.3 ug/mL 03/04/19 19:38 Tissue Pathology To follow 03/05/19 12:28 XRAY XRAY Interpreted by: Radiologist XRAY Findings: REPORT NOTED AND DISCUSS WITH PATIENT AND HIS FAMILY. Opioid Opioid Risk Tool Age (Boo box if 16-45): No History of Preadolescent Sexual Abuse: No Total: 0 Total Score Risk Category: Low Risk Copyright: Vic MILTON predicting aberrant behaviors Diagnosis Discharge Problem: Osteitis, Amputation stump infection Cellulitis Qualifiers: Site of cellulitis: extremity Site of cellulitis of extremity: lower extremity Laterality: left Qualified Code(s): L03.116 - Cellulitis of left lower limb Instructions Instructions: Wound Infection, [id number] PICC Insertion, Care After Peripheral Vascular Disease, [id number] Hand Washing, [id number] Hypertension, [id number] PICC Home Care Guide IV Infusion Therapy Managing Your Hypertension Forms: Excuse From Work Patient Portal
[2019-03-03 12:37] LABS: BASOPHILS % (AUTO) 0.5 % (0.2-1.0); EOSINOPHILS # (AUTO) 0.4 x10^3/uL (0.0-0.2); EOSINOPHILS % (AUTO) 6.9 % (0.9-2.9); HEMATOCRIT 34.4 % (42.0-54.0); LYMPHOCYTES # (AUTO) 2.3 X10^3/uL (1.3-2.9); LYMPHOCYTES % (AUTO) 41.1 % (21.0-51.0); MEAN CORPUSCULAR HEMOGLOBIN 28.9 pg (27.0-34.0); MEAN CORPUSCULAR HGB CONC 32.1 g/dL (33.0-35.0); MEAN CORPUSCULAR VOLUME 90.2 fL (80.0-100.0); MEAN PLATELET VOLUME 8.1 fL (7.4-11.0); MONOCYTES # (AUTO) 0.6 x10^3/uL (0.3-0.8); MONOCYTES % (AUTO) 11.1 % (0.0-13.0); NEUTROPHILS # (AUTO) 2.3 x10^3/uL (2.2-4.8); NEUTROPHILS % (AUTO) 40.4 % (42.0-75.0); PLATELET COUNT 211 X10^3/uL (150.0-450.0); RED BLOOD COUNT 3.81 X10^6/uL (4.7-6.0); RED CELL DISTRIBUTION WIDTH 16.4 % (11.6-16.5); WHITE BLOOD COUNT 5.6 X10^3/uL (3.6-10.0)
[2019-03-03 12:44] LABS: ALANINE AMINOTRANSFERASE 8 Units/L (12-78); ALBUMIN 2.7 g/dL (3.4-5.0); ALKALINE PHOSPHATASE 130 Units/L (46-116); ASPARTATE AMINO TRANSFERASE 13 Units/L (15-37); BLOOD UREA NITROGEN 15 mg/dL (7-18); CALCIUM 8.3 mg/dL (8.5-10.1); CARBON DIOXIDE 31.2 mmol/L (21-32); CHLORIDE 106 mmol/L (98-107); COR CA(FOR HYPOALB) 9.3 mg/dL (8.5-10.1); CREATININE 0.81 mg/dL (0.70-1.30); SODIUM 143 mmol/L (136-145); TOTAL PROTEIN 8.5 g/dL (6.4-8.2); eGFR NON BLACK RACES > 60 (>60)
[2019-03-03 12:45] LABS: BILIRUBIN,URINE NEGATIVE (NEGATIVE); BLOOD/HEMOGLOBIN,URINE 4+ (NEGATIVE); GLUCOSE, URINE NEGATIVE (NEGATIVE); KETONES,URINE NEGATIVE (NEGATIVE); LEUKOCYTE ESTERASE ,URINE 2+ (NEGATIVE); NITRITES,URINE NEGATIVE (NEGATIVE); PROTEIN,URINE 2+ (NEGATIVE); UROBILINOGEN,URINE 1+ (NORMAL)
[2019-03-03 12:50] LABS: APPEARANCE,URINE HAZY (CLEAR); COLOR,URINE YELLOW (YELLOW)
[2019-03-03 12:51] LABS: BACTERIA,URINE NEGATIVE /HPF (NEGATIVE); SQUAMOUS EPITHELIAL CELL,UR NEGATIVE /HPF (NEGATIVE)
[2019-03-03 12:52] LABS: MUCUS,URINE FEW /HPF (NEGATIVE); YEAST,URINE RARE /HPF (NEGATIVE)
[2019-03-03 13:24] LABS: ERYTHROCYTE SEDIMENTATION RATE 58 MM/HOUR (0-15)
--- NOTE | 2019-03-03 15:35 | RAD ---
HISTORY: Possible infection to left stump. Patient lower leg amputation about month ago. Drainage. Study: Two-view left knee (actually images of the remaining distal left femur) Comparison: No priors Technique: Views left distal femur obtained above the level the above knee amputation. Findings: There are surgical clips present involving medial region. In addition to the amputation there is lucency of bone seen involving distal aspect of stump. Findings are suspicious for lytic changes with osteomyelitis. There is a small amount of subcutaneous air present in this region also, indicating infection. No fracture or dislocation is seen. IMPRESSION: Findings compatible with osteomyelitis of the stump of the left distal femur. There is indication of soft tissue infection also. No fracture or dislocation is seen. Reported By:
[2019-03-03] MEDS ORDERED: VANCOMYCIN HCL 1 G in D5W 250 ML IV 250 ML IV ONE (16:17)
[2019-03-03] MEDS ORDERED: NS 250 ML IV 250 ML ONE (16:19)
[2019-03-03] MEDS ORDERED: VANCOMYCIN HCL ONE (16:19)
[2019-03-03 17:15] VITALS: BMI 17.6
[2019-03-03] MEDS ORDERED: PROVENTIL NEB TX 0.083% 2.5MG/ 3ML NEB PRN (18:01)
[2019-03-03] MEDS ORDERED: NORVASC TAB 10 MG PO SCH (18:17)
[2019-03-03] MEDS ORDERED: NORVASC TAB 5 MG ONE (18:21)
[2019-03-03] MEDS ORDERED: CATAPRES TAB 0.1 MG ONE (18:21)
[2019-03-03] MEDS ORDERED: DIOVAN TAB 80 MG ONE (18:22)
[2019-03-03] MEDS ORDERED: COREG TAB 25 MG ONE (18:22)
[2019-03-03] MEDS: COREG TAB 25 MG PO SCH ×2 (18:24→21:32)
[2019-03-03] MEDS: DIOVAN TAB 80 MG PO SCH (18:24)
[2019-03-03] MEDS: NORVASC TAB 5 MG PO SCH (18:25)
[2019-03-03] MEDS: CATAPRES TAB 0.1 MG PO SCH (18:31)
[2019-03-03] MEDS ORDERED: PHARMACY CONSULT - VANCOMYCIN XX SCH (20:00)
[2019-03-03] MEDS: PULMICORT NEB TX 0.5 MG NEB SCH (20:20)
[2019-03-03] MEDS: COLACE CAP 100 MG PO SCH (21:30)
[2019-03-04 05:50] LABS: BASOPHILS % (AUTO) 0.5 % (0.2-1.0); EOSINOPHILS # (AUTO) 0.4 x10^3/uL (0.0-0.2); EOSINOPHILS % (AUTO) 6.9 % (0.9-2.9); HEMATOCRIT 32.5 % (42.0-54.0); HEMOGLOBIN 10.5 g/dL (13.5-18.0); LYMPHOCYTES # (AUTO) 1.7 X10^3/uL (1.3-2.9); LYMPHOCYTES % (AUTO) 31.7 % (21.0-51.0); MEAN CORPUSCULAR HEMOGLOBIN 28.8 pg (27.0-34.0); MEAN CORPUSCULAR HGB CONC 32.2 g/dL (33.0-35.0); MEAN CORPUSCULAR VOLUME 89.4 fL (80.0-100.0); MONOCYTES # (AUTO) 0.6 x10^3/uL (0.3-0.8); NEUTROPHILS # (AUTO) 2.6 x10^3/uL (2.2-4.8); NEUTROPHILS % (AUTO) 49.9 % (42.0-75.0); PLATELET COUNT 190 X10^3/uL (150.0-450.0); RED BLOOD COUNT 3.64 X10^6/uL (4.7-6.0); RED CELL DISTRIBUTION WIDTH 16.3 % (11.6-16.5); WHITE BLOOD COUNT 5.2 X10^3/uL (3.6-10.0)
[2019-03-04 05:53] LABS: ALANINE AMINOTRANSFERASE < 6 Units/L (12-78); ALBUMIN 2.3 g/dL (3.4-5.0); ALKALINE PHOSPHATASE 107 Units/L (46-116); ASPARTATE AMINO TRANSFERASE 13 Units/L (15-37); BLOOD UREA NITROGEN 10 mg/dL (7-18); CALCIUM 7.8 mg/dL (8.5-10.1); CARBON DIOXIDE 27.3 mmol/L (21-32); CHLORIDE 107 mmol/L (98-107); COR CA(FOR HYPOALB) 9.2 mg/dL (8.5-10.1); COR NA(FOR HYPERGLY) 142 mmol/L (136-145); CREATININE 0.68 mg/dL (0.70-1.30); SODIUM 141 mmol/L (136-145); TOTAL PROTEIN 7.4 g/dL (6.4-8.2); eGFR NON BLACK RACES > 60 (>60)
[2019-03-04] MEDS ORDERED: KLOR-CON PO PRN (06:07)
[2019-03-04] MEDS ORDERED: K-RIDER 10 MEQ/NS 100 ML 10 MEQ/100 ML BAG IV PRN (06:07)
[2019-03-04] MEDS ORDERED: POTASSIUM CHL 60 MEQ/NS 0.45% 500 ML IV PRN (06:07)
[2019-03-04] MEDS ORDERED: MICRO K EXTEN CAP 10 MEQ PO PRN (06:07)
[2019-03-04] MEDS ORDERED: POTASSIUM CHLORIDE LIQ 20 MEQ UDC PO PRN (06:07)
[2019-03-04] MEDS ORDERED: POTASSIUM CHL 40 MEQ/NS 0.45% 500 ML IV PRN (06:07)
[2019-03-04] MEDS ORDERED: K-DUR TAB 20 MEQ ONE (06:31)
[2019-03-04] MEDS: K-DUR TAB 20 MEQ PO PRN ×2 (06:39→10:00)
[2019-03-04] MEDS ORDERED: NS 1000 ML 1,000 ML ONE (07:13)
[2019-03-04] MEDS: MAGNESIUM SULFATE 1 GRAM/100 mL PREMIX 1 GM/100 ML BAG IV PRN ×2 (07:24→10:30)
[2019-03-04] MEDS: PULMICORT NEB TX 0.5 MG NEB SCH ×2 (08:19→21:20)
[2019-03-04] MEDS: VANCOMYCIN HCL 1 G in D5W 250 ML IV 250 ML IV SCH ×2 (08:56→21:12)
[2019-03-04] MEDS: NORVASC TAB 5 MG PO SCH (08:57)
[2019-03-04] MEDS: DIOVAN TAB 80 MG PO SCH (08:57)
[2019-03-04] MEDS: LIPITOR TAB 40 MG PO SCH (08:57)
[2019-03-04] MEDS: COREG TAB 25 MG PO SCH ×2 (08:57→21:14)
[2019-03-04] MEDS: NEURONTIN CAP 300 MG PO SCH (08:57)
[2019-03-04] MEDS: CATAPRES TAB 0.1 MG PO SCH ×2 (08:58→21:14)
[2019-03-04] MEDS ORDERED: NORVASC TAB 5 MG PO SCH (09:00)
[2019-03-04] MEDS ORDERED: COREG TAB 25 MG PO SCH (09:00)
[2019-03-04] MEDS ORDERED: CATAPRES TAB 0.1 MG PO SCH (09:00)
[2019-03-04] MEDS ORDERED: DIOVAN TAB 80 MG PO SCH (09:00)
--- NOTE | 2019-03-04 17:42 | DR.H&P ---
H&P - History & Physical for Day of: H&P Date: 03/03/19 - Chief Complaint Chief Complaint: co infected stump (left aka) - History of Present Illness History of Present Illness: 73 BM ER ADMISSION AFTER PRESENTING WITH CO PAIN, REDNESS SWELLING TO L AKA. PT IS S/P LLE AMPUTATION. 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 PT HAD FOUL, PURULENT DRAINAGE FROM WOUND TO LEFT STUMP. PT HAS PMH HTN AND PAD. XRAY IN ER REVEALED OSTEOMYELITIS. PT ADMITTED WITH VANCOMYCIN AND SURGICAL CONSULTATION - Past Medical History Past Medical History: Hypertension Additional Medical History: PAD - Past Surgical History Surgical History: Ortho Surgery, Other - Family History Family Medical History: Cancer, [place], Hypertension - Social History Does patient currently use any type of tobacco product: No Have you used tobacco products in the last 12 months: No Type of Tobacco Use: None Does any household member use tobacco: No Alcohol Use: None Drug Use: None - Medications Home Medications: MONIKA Inhibitors Allergy (Verified 03/03/19 10:33) CONTINUE taking the following medications amlodipine 5 mg PO DAILY 03/03/19 [History] atorvastatin 40 mg PO DAILY 03/03/19 [History] carvedilol 25 mg PO BID 03/03/19 [History] clonidine HCl 1 tab PO BID 03/03/19 [History] clopidogrel 75 mg PO DAILY 03/03/19 [History] gabapentin 300 mg PO DAILY 03/03/19 [History] gabapentin 600 mg PO HS 03/03/19 [History] omeprazole 20 mg PO DAILY 03/03/19 [History] tizanidine 8 mg PO HS 03/03/19 [History] valsartan 80 mg PO DAILY 03/03/19 [History] - Review of Systems Constitutional: Fever Eyes: No Symptoms Reported ENT: No Symptoms Reported Respiratory: No Symptoms Reported Cardiovascular: No Symptoms Reported Gastrointestinal: No Symptoms Reported Genitourinary: No Symptoms Reported Musculoskeletal: Leg Pain Skin: Wound Neurological: No Symptoms Reported - Physical Exam Vital Signs: Temperature 99.0 F Pulse Rate [Left Brachial] 78 Pulse Rate 67 Respiratory Rate 22 Blood Pressure [Left Arm] 141/83 Blood Pressure 138/63 O2 Sat by Pulse Oximetry 99 Oriented: Normal Eyes: Normal Ear: Normal Nose: Normal Throat: Normal Respiratory: RLL Diminished, LLL Diminished Cardiovascular: Normal : Normal Auscultation: Bowel Sounds: Normal Palpation: Normal Tenderness: Normal Skin: Red, Tender, Hot, Wound (LEFT AKA POST OPERATIVE STUMP WOUND WITH PURULENT DRAINAGE) Musculoskeletal: Left, Leg, Deformity (RIGHT BKA, LEFT AKA) Psychiatric: Anxiety Affect: Anxious Speech Pattern: Clear, Appropriate - Assessment/Plan (1) Osteomyelitis Status: Acute Plan: ADMIT, WOUND AND BLOOD CULTURES. IV ATBX THERAPY, PAIN CONTROL. BP CONTROL, VERIFY AND RESUME HOME MEDICATION. SURGICAL CONSULTATION (2) Amputation stump infection Status: Acute (3) HTN (hypertension) Status: Acute - Allergies Allergies/Adverse Reactions: Allergies Allergy/AdvReac Type Severity Reaction Status Date / Time MONIKA Inhibitors Allergy Verified 03/03/19 10:33
[2019-03-04] MEDS ORDERED: LOVENOX INJ 40 MG SYR SC SCH (18:00)
[2019-03-04] MEDS: COLACE CAP 100 MG PO SCH (20:14)
[2019-03-05] MEDS ORDERED: NS 100 ML IV 100 ML ONE (06:24)
[2019-03-05 06:44] LABS: BASOPHILS % (AUTO) 0.5 % (0.2-1.0); EOSINOPHILS # (AUTO) 0.4 x10^3/uL (0.0-0.2); EOSINOPHILS % (AUTO) 7.3 % (0.9-2.9); HEMOGLOBIN 10.4 g/dL (13.5-18.0); LYMPHOCYTES # (AUTO) 1.8 X10^3/uL (1.3-2.9); MEAN CORPUSCULAR HEMOGLOBIN 28.9 pg (27.0-34.0); MEAN CORPUSCULAR HGB CONC 32.4 g/dL (33.0-35.0); MEAN CORPUSCULAR VOLUME 89.3 fL (80.0-100.0); MEAN PLATELET VOLUME 8.1 fL (7.4-11.0); MONOCYTES # (AUTO) 0.5 x10^3/uL (0.3-0.8); MONOCYTES % (AUTO) 9.8 % (0.0-13.0); NEUTROPHILS # (AUTO) 2.5 x10^3/uL (2.2-4.8); NEUTROPHILS % (AUTO) 47.4 % (42.0-75.0); PLATELET COUNT 191 X10^3/uL (150.0-450.0); RED BLOOD COUNT 3.58 X10^6/uL (4.7-6.0); WHITE BLOOD COUNT 5.2 X10^3/uL (3.6-10.0)
[2019-03-05 06:56] LABS: ALANINE AMINOTRANSFERASE 7 Units/L (12-78); ALBUMIN 2.3 g/dL (3.4-5.0); ALKALINE PHOSPHATASE 104 Units/L (46-116); ASPARTATE AMINO TRANSFERASE 12 Units/L (15-37); BLOOD UREA NITROGEN 9 mg/dL (7-18); CALCIUM 8.1 mg/dL (8.5-10.1); CARBON DIOXIDE 27.4 mmol/L (21-32); CHLORIDE 108 mmol/L (98-107); COR CA(FOR HYPOALB) 9.5 mg/dL (8.5-10.1); CREATININE 0.64 mg/dL (0.70-1.30); MAGNESIUM 1.6 mg/dL (1.7-2.9); SODIUM 143 mmol/L (136-145); TOTAL PROTEIN 7.5 g/dL (6.4-8.2); eGFR NON BLACK RACES > 60 (>60)
[2019-03-05] MEDS: CATAPRES TAB 0.1 MG PO SCH ×2 (07:59→21:59)
[2019-03-05] MEDS: COREG TAB 25 MG PO SCH ×2 (07:59→21:59)
[2019-03-05] MEDS: NORVASC TAB 5 MG PO SCH (08:00)
[2019-03-05] MEDS: LIPITOR TAB 40 MG PO SCH (08:00)
[2019-03-05] MEDS: NEURONTIN CAP 300 MG PO SCH (08:00)
[2019-03-05] MEDS: DIOVAN TAB 80 MG PO SCH (08:00)
[2019-03-05] MEDS: MILK OF MAGNESIA PO SCH (08:01)
[2019-03-05] MEDS: PULMICORT NEB TX 0.5 MG NEB SCH ×2 (08:41→21:21)
[2019-03-05] MEDS: VANCOMYCIN HCL 1 G in D5W 250 ML IV 250 ML IV SCH (09:58)
--- NOTE | 2019-03-05 10:25 | CT ---
History: Left lower leg amputation 1 month ago with drainage from the stump area and nonhealing of the stump Study: CTA of the lower extremities without and then with 150 mL Omnipaque 350 IV contrast. Sagittal and coronal reformations were provided. Three-dimensional MIPS were displayed in multiple degrees of obliquity. Comparison: None Findings: There is heavy diffuse atherosclerotic calcification. There is no aneurysmal dilatation of the visualized distal abdominal aorta. There is thrombus occluding the left external iliac artery with prominent circumferential mural thrombus in the distal left common iliac artery. The right external iliac artery is also occluded. The internal iliac arteries are patent. There is an occluded right femoral popliteal graft and there is an occluded left superficial femoral artery graft. There is poor collateral blood flow to the lower extremities. Through reconstitution of profundus femoral arteries bilaterally. There is right below the knee amputation. There is a left above the knee amputation. On the right there is partial reconstruction of the popliteal artery behind the knee. It is then occluded. There is a reconstitution of portions of the right peroneal artery. On the left there is subcutaneous stranding of fat planes about the stump and in the mid thigh. No abscess is demonstrated. There is abnormal contrast enhancement posteriorly in the distal stump. Impression: 1. Occluded external iliac and common femoral arteries and occluded right fem-pop graft and occluded left superficial femoral artery graft. 2. Poor lower extremity run-off via collaterals from the internal iliac arteries and profundus femoral arteries. Superficial femoral arteries are also occluded. 3. Subcutaneous stranding and abnormal enhancement of the soft tissues about the above the knee stump on the left consistent with inflammation and cellulitis and myositis but no definite abscess. Reported By:
[2019-03-05] MEDS ORDERED: BACITRACIN VIAL ONE (11:48)
[2019-03-05] MEDS ORDERED: HYDROGEN PEROXIDE 3% ONE (11:49)
[2019-03-05] MEDS ORDERED: MORPHINE SULFATE INJ 2 MG INJ IVP PRN (12:53)
[2019-03-05] MEDS ORDERED: NS 250 ML IV 250 ML ONE (13:56)
[2019-03-05] MEDS: LEVAQUIN PREMIX IV 500 MG 500 MG/100 ML BAG IV SCH (14:07)
[2019-03-05] MEDS ORDERED: VERSED ONE (15:23)
[2019-03-05] MEDS ORDERED: DIPRIVAN VIAL ONE (15:23)
[2019-03-05] MEDS: COLACE CAP 100 MG PO SCH (21:59)
[2019-03-05] MEDS: FORTAZ or TAZICEF VIAL INJ IVP SCH (22:00)
[2019-03-06 06:33] LABS: BASOPHILS % (AUTO) 0.5 % (0.2-1.0); EOSINOPHILS # (AUTO) 0.4 x10^3/uL (0.0-0.2); EOSINOPHILS % (AUTO) 6.9 % (0.9-2.9); HEMATOCRIT 33.3 % (42.0-54.0); HEMOGLOBIN 10.7 g/dL (13.5-18.0); LYMPHOCYTES # (AUTO) 1.9 X10^3/uL (1.3-2.9); LYMPHOCYTES % (AUTO) 32.6 % (21.0-51.0); MEAN CORPUSCULAR HEMOGLOBIN 28.6 pg (27.0-34.0); MEAN CORPUSCULAR HGB CONC 32.2 g/dL (33.0-35.0); MEAN CORPUSCULAR VOLUME 88.9 fL (80.0-100.0); MEAN PLATELET VOLUME 7.9 fL (7.4-11.0); MONOCYTES # (AUTO) 0.6 x10^3/uL (0.3-0.8); MONOCYTES % (AUTO) 9.7 % (0.0-13.0); NEUTROPHILS # (AUTO) 2.9 x10^3/uL (2.2-4.8); NEUTROPHILS % (AUTO) 50.3 % (42.0-75.0); PLATELET COUNT 214 X10^3/uL (150.0-450.0); RED BLOOD COUNT 3.75 X10^6/uL (4.7-6.0); RED CELL DISTRIBUTION WIDTH 16.2 % (11.6-16.5); WHITE BLOOD COUNT 5.8 X10^3/uL (3.6-10.0)
[2019-03-06 06:50] LABS: ALANINE AMINOTRANSFERASE 7 Units/L (12-78); ALBUMIN 2.3 g/dL (3.4-5.0); ALKALINE PHOSPHATASE 106 Units/L (46-116); ASPARTATE AMINO TRANSFERASE 13 Units/L (15-37); BLOOD UREA NITROGEN 10 mg/dL (7-18); CALCIUM 8.2 mg/dL (8.5-10.1); CARBON DIOXIDE 28.2 mmol/L (21-32); CHLORIDE 106 mmol/L (98-107); COR CA(FOR HYPOALB) 9.6 mg/dL (8.5-10.1); CREATININE 0.78 mg/dL (0.70-1.30); SODIUM 141 mmol/L (136-145); TOTAL PROTEIN 7.7 g/dL (6.4-8.2); eGFR NON BLACK RACES > 60 (>60)
[2019-03-06] MEDS ORDERED: PHARMACY COMMENT IV NR (08:30)
[2019-03-06] MEDS: PULMICORT NEB TX 0.5 MG NEB SCH ×2 (08:37→20:49)
[2019-03-06] MEDS: COREG TAB 25 MG PO SCH ×2 (08:43→20:39)
[2019-03-06] MEDS: LIPITOR TAB 40 MG PO SCH (08:43)
[2019-03-06] MEDS: NEURONTIN CAP 300 MG PO SCH (08:43)
[2019-03-06] MEDS: NORVASC TAB 5 MG PO SCH (08:43)
[2019-03-06] MEDS: LEVAQUIN PREMIX IV 500 MG 500 MG/100 ML BAG IV SCH (08:43)
[2019-03-06] MEDS: DIOVAN TAB 80 MG PO SCH (08:43)
[2019-03-06] MEDS: CATAPRES TAB 0.1 MG PO SCH ×2 (08:43→20:39)
[2019-03-06] MEDS: FORTAZ or TAZICEF VIAL INJ IVP SCH ×2 (08:43→20:39)
[2019-03-06] MEDS: MILK OF MAGNESIA PO SCH (08:43)
--- NOTE | 2019-03-06 11:53 | DR.PROGNOT ---
Hospital Progress Notes - Progress Note for Day of: Progress Note Date: 03/06/19 - Chief Complaint Chief Complaint: moderate drainage from Lt leg incision . s/p debridement and packing . afebrile . - Past Medical Family Social History Past Med/Fam/Surg Hx: No changes since H&P Allergies: Allergies MONIKA Inhibitors Allergy (Verified 03/03/19 10:33) - Review Of Systems ROS: No change since H&P - Vital Signs Vital Signs: Temperature 99.4 F Pulse Rate [Left Brachial] 78 Pulse Rate 58 Respiratory Rate 17 Blood Pressure [Left Arm] 141/83 Blood Pressure 173/74 O2 Sat by Pulse Oximetry 98 - Physical Exam Oriented: Normal Eyes: Normal Ear: Normal Nose: Normal Throat: Normal Respiratory: Normal Cardiovascular: Normal : Normal GI:Auscultation: Normal GI:Palpation: Normal GI: Tenderness: Normal Skin: Red, Tender, Hot, Wound (dressing was changed , no necrosis or abscess . there was tunneling with deep pucket within the soft tissue ) Musculoskeletal: Left, Leg, Deformity (RIGHT BKA, LEFT AKA) Psychiatric: Anxiety Affect: Anxious Speech Pattern: Clear, Appropriate - Laboratory and Diagnostics Result Diagrams: 03/06/19 06:00 03/06/19 06:00 Labs: 03/05/19 12:20 Leg - Left Gram Stain - Final 03/05/19 12:20 Leg - Left Wound Culture - Preliminary 03/03/19 12:15 Blood Blood Culture - Preliminary 03/03/19 12:10 Blood Blood Culture - Preliminary 03/03/19 12:12 Leg - Left Gram Stain - Final 03/03/19 12:12 Leg - Left Wound Culture - Final Proteus Mirabilis Acinetobacter Baumanii/Haemoly Laboratory WBC 5.8 X10^3/uL (3.6-10.0) 03/06/19 06:00 RBC 3.75 X10^6/uL (4.7-6.0) L 03/06/19 06:00 Hgb 10.7 g/dL (13.5-18.0) L 03/06/19 06:00 Hct 33.3 % (42.0-54.0) L 03/06/19 06:00 MCV 88.9 fL (80.0-100.0) 03/06/19 06:00 MCH 28.6 pg (27.0-34.0) 03/06/19 06:00 MCHC 32.2 g/dL (33.0-35.0) L 03/06/19 06:00 RDW 16.2 % (11.6-16.5) 03/06/19 06:00 Plt Count 214 X10^3/uL (150.0-450.0) 03/06/19 06:00 MPV 7.9 fL (7.4-11.0) 03/06/19 06:00 Neut % (Auto) 50.3 % (42.0-75.0) 03/06/19 06:00 Lymph % (Auto) 32.6 % (21.0-51.0) 03/06/19 06:00 [place] % (Auto) 9.7 % (0.0-13.0) 03/06/19 06:00 Eos % (Auto) 6.9 % (0.9-2.9) H 03/06/19 06:00 Baso % (Auto) 0.5 % (0.2-1.0) 03/06/19 06:00 Neut # (Auto) 2.9 x10^3/uL (2.2-4.8) 03/06/19 06:00 Lymph # (Auto) 1.9 X10^3/uL (1.3-2.9) 03/06/19 06:00 [place] # (Auto) 0.6 x10^3/uL (0.3-0.8) 03/06/19 06:00 Eos # (Auto) 0.4 x10^3/uL (0.0-0.2) H 03/06/19 06:00 Baso # (Auto) 0.0 X10^3/uL (0.0-0.1) 03/06/19 06:00 Absolute Nucleated RBC 0.0 /100WBC 03/06/19 06:00 ESR 58 MM/HOUR (0-15) H 03/03/19 12:10 Sodium 141 mmol/L (136-145) 03/06/19 06:00 Corrected Sodium TNP 03/06/19 06:00 Potassium 3.5 mmol/L (3.5-5.1) 03/06/19 06:00 Chloride 106 mmol/L (98-107) 03/06/19 06:00 Carbon Dioxide 28.2 mmol/L (21-32) 03/06/19 06:00 BUN 10 mg/dL (7-18) 03/06/19 06:00 Creatinine 0.78 mg/dL (0.70-1.30) 03/06/19 06:00 Est GFR (MDRD) Af Amer > 60 (>60) 03/06/19 06:00 Est GFR (MDRD) Non-Af > 60 (>60) 03/06/19 06:00 Glucose 101 mg/dL (65-99) H 03/06/19 06:00 Calcium 8.2 mg/dL (8.5-10.1) L 03/06/19 06:00 Corrected Calcium 9.6 mg/dL (8.5-10.1) 03/06/19 06:00 Magnesium 1.6 mg/dL (1.7-2.9) L 03/05/19 06:00 Total Bilirubin 0.20 mg/dL (0.2-1.0) 03/06/19 06:00 AST 13 Units/L (15-37) L 03/06/19 06:00 ALT 7 Units/L (12-78) L 03/06/19 06:00 Alkaline Phosphatase 106 Units/L (46-116) 03/06/19 06:00 C-Reactive Protein 26.50 mg/L (0-3.0) H 03/03/19 12:10 Total Protein 7.7 g/dL (6.4-8.2) 03/06/19 06:00 Albumin 2.3 g/dL (3.4-5.0) L 03/06/19 06:00 Globulin 5.4 g/dL (2.5-4.5) H 03/06/19 06:00 Albumin/Globulin Ratio 0.4 Ratio (1.1-2.1) L 03/06/19 06:00 Specimen Type Random urine 03/03/19 12:07 Urine Color Yellow (YELLOW) 03/03/19 12:07 Urine Appearance Hazy (CLEAR) 03/03/19 12:07 Urine pH 5.0 (5.0 - 8.0) 03/03/19 12:07 Ur Specific [place] 1.025 (1.000-1.030) 03/03/19 12:07 Urine Protein 2+ (NEGATIVE) 03/03/19 12:07 Urine Glucose (UA) Negative (NEGATIVE) 03/03/19 12:07 Urine Ketones Negative (NEGATIVE) 03/03/19 12:07 Urine Occult Blood 4+ (NEGATIVE) 03/03/19 12:07 Urine Nitrite Negative (NEGATIVE) 03/03/19 12:07 Urine Bilirubin Negative (NEGATIVE) 03/03/19 12:07 Urine Urobilinogen 1+ (NORMAL) 03/03/19 12:07 Ur Leukocyte Esterase 2+ (NEGATIVE) 03/03/19 12:07 Urine RBC 5-10 /HPF (0-3) A 03/03/19 12:07 Urine WBC 3-5 /HPF (0-5) 03/03/19 12:07 Ur Squamous Epith Cells Negative /HPF (NEGATIVE) 03/03/19 12:07 Urine Bacteria Negative /HPF (NEGATIVE) 03/03/19 12:07 Urine Mucus Few /HPF (NEGATIVE) 03/03/19 12:07 Urine Yeast Rare /HPF (NEGATIVE) 03/03/19 12:07 Ur Culture Indicated? No/not indicated 03/03/19 12:07 Random Vancomycin 6.3 ug/mL 03/04/19 19:38 Tissue Pathology To follow 03/05/19 12:28 - Assessment and Plan 1: post op debridement lt AKA incision . needs IV ATB and possible wound vac . - Problem Patient Problems: Patient Problems Osteitis (Acute) M86.9 Osteomyelitis (Acute) M86.9 Amputation stump infection (Acute) T87.40
[2019-03-06] MEDS ORDERED: FLOMAX ONE (14:11)
[2019-03-06] MEDS: FLOMAX PO SCH ×2 (14:13→20:39)
[2019-03-06] MEDS: PLAVIX PO SCH (14:18)
--- NOTE | 2019-03-06 19:07 | PCM.PROG ---
Progress Note - Progress Note for Day of Date of Exam: 03/06/19 - Subjective Subjective: 73 BM ADMITTED ON 03/03 WITH LEFT AKA STUMP INFECTION. PT WAS STARTED ON IV ATBX THERAPY ON ADMISSION WITH WOUND AND BLOOD CULTURES COLLECTED, XRAY REVEALED OSTEOMYELITIS. PT S/P DEBRIDEMENT WITH PACKING PER DR VILLARREAL. PT CULTURE OBTAINED ON ADMISSION + PROTEUS AND ACINETOBACTER. PT IS ON FORTAZ AND LEVAQUIN. PT HAD SEVERE BILATERAL PAD, ON PLAVIX. DR VILLARREAL DISCUSSED NEED FOR WOUND VAC WITH PT AND FAMILY. CULTURE OBTAIN IN OR ARE PENDING. PT IS AFEBRILE. - Past Medical Family Social History Past Med/Fam/Surg Hx: No changes since H&P Allergies: Allergies MONIKA Inhibitors Allergy (Verified 03/03/19 10:33) - Review of Systems ROS: No change since H&P - Vital Signs and I&O's Vital Signs: Temperature 98.2 F Pulse Rate [Left Brachial] 78 Pulse Rate 70 Respiratory Rate 18 Blood Pressure [Left Arm] 141/83 Blood Pressure 131/63 O2 Sat by Pulse Oximetry 96 Intake and Output: Intake & Output 03/04/19 03/05/19 03/06/19 03/07/19 11:59 11:59 11:59 11:59 Intake Total 650 / 650 2087 / 2087 1040 / 1040 600 / 600 Output Total 950 / 950 1450 / 1450 2100 / 2100 400 / 400 Balance -300 / -300 637 / 637 -1060 / -1060 200 / 200 - Physical Exam Oriented: Normal Eyes: Normal Ear: Normal Nose: Normal Throat: Normal Respiratory: Diminished Cardiovascular: Normal : Normal Auscultation: Bowel Sounds: Normal Tenderness: Normal Skin: Red, Tender, Hot, Wound (Red, Tender, Hot, Wound (dressing was changed , no necrosis or abscess . there was tunneling with deep pucket within the soft tissue ) Musculoskeletal: Left, Leg, Deformity (RIGHT BKA, LEFT AKA) Psychiatric: Anxiety Affect: Anxious Speech Pattern: Clear, Appropriate - Laboratory and Diagnostics Result Diagrams: 03/06/19 06:00 03/06/19 06:00 Labs: 03/05/19 12:20 Leg - Left Gram Stain - Final 03/05/19 12:20 Leg - Left Wound Culture - Preliminary 03/03/19 12:15 Blood Blood Culture - Preliminary 03/03/19 12:10 Blood Blood Culture - Preliminary 03/03/19 12:12 Leg - Left Gram Stain - Final 03/03/19 12:12 Leg - Left Wound Culture - Final Proteus Mirabilis Acinetobacter Baumanii/Haemoly Laboratory WBC 5.8 X10^3/uL (3.6-10.0) 03/06/19 06:00 RBC 3.75 X10^6/uL (4.7-6.0) L 03/06/19 06:00 Hgb 10.7 g/dL (13.5-18.0) L 03/06/19 06:00 Hct 33.3 % (42.0-54.0) L 03/06/19 06:00 MCV 88.9 fL (80.0-100.0) 03/06/19 06:00 MCH 28.6 pg (27.0-34.0) 03/06/19 06:00 MCHC 32.2 g/dL (33.0-35.0) L 03/06/19 06:00 RDW 16.2 % (11.6-16.5) 03/06/19 06:00 Plt Count 214 X10^3/uL (150.0-450.0) 03/06/19 06:00 MPV 7.9 fL (7.4-11.0) 03/06/19 06:00 Neut % (Auto) 50.3 % (42.0-75.0) 03/06/19 06:00 Lymph % (Auto) 32.6 % (21.0-51.0) 03/06/19 06:00 [place] % (Auto) 9.7 % (0.0-13.0) 03/06/19 06:00 Eos % (Auto) 6.9 % (0.9-2.9) H 03/06/19 06:00 Baso % (Auto) 0.5 % (0.2-1.0) 03/06/19 06:00 Neut # (Auto) 2.9 x10^3/uL (2.2-4.8) 03/06/19 06:00 Lymph # (Auto) 1.9 X10^3/uL (1.3-2.9) 03/06/19 06:00 [place] # (Auto) 0.6 x10^3/uL (0.3-0.8) 03/06/19 06:00 Eos # (Auto) 0.4 x10^3/uL (0.0-0.2) H 03/06/19 06:00 Baso # (Auto) 0.0 X10^3/uL (0.0-0.1) 03/06/19 06:00 Absolute Nucleated RBC 0.0 /100WBC 03/06/19 06:00 ESR 58 MM/HOUR (0-15) H 03/03/19 12:10 Sodium 141 mmol/L (136-145) 03/06/19 06:00 Corrected Sodium TNP 03/06/19 06:00 Potassium 3.5 mmol/L (3.5-5.1) 03/06/19 06:00 Chloride 106 mmol/L (98-107) 03/06/19 06:00 Carbon Dioxide 28.2 mmol/L (21-32) 03/06/19 06:00 BUN 10 mg/dL (7-18) 03/06/19 06:00 Creatinine 0.78 mg/dL (0.70-1.30) 03/06/19 06:00 Est GFR (MDRD) Af Amer > 60 (>60) 03/06/19 06:00 Est GFR (MDRD) Non-Af > 60 (>60) 03/06/19 06:00 Glucose 101 mg/dL (65-99) H 03/06/19 06:00 Calcium 8.2 mg/dL (8.5-10.1) L 03/06/19 06:00 Corrected Calcium 9.6 mg/dL (8.5-10.1) 03/06/19 06:00 Magnesium 1.6 mg/dL (1.7-2.9) L 03/05/19 06:00 Total Bilirubin 0.20 mg/dL (0.2-1.0) 03/06/19 06:00 AST 13 Units/L (15-37) L 03/06/19 06:00 ALT 7 Units/L (12-78) L 03/06/19 06:00 Alkaline Phosphatase 106 Units/L (46-116) 03/06/19 06:00 C-Reactive Protein 26.50 mg/L (0-3.0) H 03/03/19 12:10 Total Protein 7.7 g/dL (6.4-8.2) 03/06/19 06:00 Albumin 2.3 g/dL (3.4-5.0) L 03/06/19 06:00 Globulin 5.4 g/dL (2.5-4.5) H 03/06/19 06:00 Albumin/Globulin Ratio 0.4 Ratio (1.1-2.1) L 03/06/19 06:00 Specimen Type Random urine 03/03/19 12:07 Urine Color Yellow (YELLOW) 03/03/19 12:07 Urine Appearance Hazy (CLEAR) 03/03/19 12:07 Urine pH 5.0 (5.0 - 8.0) 03/03/19 12:07 Ur Specific [place] 1.025 (1.000-1.030) 03/03/19 12:07 Urine Protein 2+ (NEGATIVE) 03/03/19 12:07 Urine Glucose (UA) Negative (NEGATIVE) 03/03/19 12:07 Urine Ketones Negative (NEGATIVE) 03/03/19 12:07 Urine Occult Blood 4+ (NEGATIVE) 03/03/19 12:07 Urine Nitrite Negative (NEGATIVE) 03/03/19 12:07 Urine Bilirubin Negative (NEGATIVE) 03/03/19 12:07 Urine Urobilinogen 1+ (NORMAL) 03/03/19 12:07 Ur Leukocyte Esterase 2+ (NEGATIVE) 03/03/19 12:07 Urine RBC 5-10 /HPF (0-3) A 03/03/19 12:07 Urine WBC 3-5 /HPF (0-5) 03/03/19 12:07 Ur Squamous Epith Cells Negative /HPF (NEGATIVE) 03/03/19 12:07 Urine Bacteria Negative /HPF (NEGATIVE) 03/03/19 12:07 Urine Mucus Few /HPF (NEGATIVE) 03/03/19 12:07 Urine Yeast Rare /HPF (NEGATIVE) 03/03/19 12:07 Ur Culture Indicated? No/not indicated 03/03/19 12:07 Random Vancomycin 6.3 ug/mL 03/04/19 19:38 Tissue Pathology To follow 03/05/19 12:28 - Plan (1) Osteomyelitis Status: Acute Plan: WOUND AND BLOOD CULTURES OBTAINED ON ADMISSION. IV ATBX THERAPY, PAIN CONTROL. BP CONTROL. SURGICAL CONSULTATION, POST OPERATIVE WOUND CARE (2) Amputation stump infection Status: Acute (3) HTN (hypertension) Status: Acute (4) PAD (peripheral artery disease) Status: Acute Plan: BP CONTROL STATIN, PLAVIX
[2019-03-06] MEDS: COLACE CAP 100 MG PO SCH (20:39)
[2019-03-06] MEDS: XALATAN EACHEYE SCH (20:39)
[2019-03-06] MEDS: TRUSOPT PLUS (OPHTH) EACHEYE SCH (21:30)
[2019-03-07 06:25] LABS: BASOPHILS % (AUTO) 0.4 % (0.2-1.0); EOSINOPHILS # (AUTO) 0.5 x10^3/uL (0.0-0.2); EOSINOPHILS % (AUTO) 7.9 % (0.9-2.9); HEMATOCRIT 31.2 % (42.0-54.0); HEMOGLOBIN 10.1 g/dL (13.5-18.0); LYMPHOCYTES % (AUTO) 35.3 % (21.0-51.0); MEAN CORPUSCULAR HEMOGLOBIN 28.8 pg (27.0-34.0); MEAN CORPUSCULAR HGB CONC 32.3 g/dL (33.0-35.0); MEAN CORPUSCULAR VOLUME 89.2 fL (80.0-100.0); MEAN PLATELET VOLUME 7.8 fL (7.4-11.0); MONOCYTES # (AUTO) 0.7 x10^3/uL (0.3-0.8); MONOCYTES % (AUTO) 11.3 % (0.0-13.0); NEUTROPHILS # (AUTO) 2.6 x10^3/uL (2.2-4.8); NEUTROPHILS % (AUTO) 45.1 % (42.0-75.0); PLATELET COUNT 187 X10^3/uL (150.0-450.0); RED CELL DISTRIBUTION WIDTH 16.5 % (11.6-16.5); WHITE BLOOD COUNT 5.8 X10^3/uL (3.6-10.0)
[2019-03-07 06:46] LABS: ALANINE AMINOTRANSFERASE < 6 Units/L (12-78); ALBUMIN 2.3 g/dL (3.4-5.0); ALKALINE PHOSPHATASE 107 Units/L (46-116); ASPARTATE AMINO TRANSFERASE 11 Units/L (15-37); BLOOD UREA NITROGEN 10 mg/dL (7-18); CALCIUM 8.3 mg/dL (8.5-10.1); CARBON DIOXIDE 27.1 mmol/L (21-32); CHLORIDE 106 mmol/L (98-107); COR CA(FOR HYPOALB) 9.7 mg/dL (8.5-10.1); CREATININE 0.77 mg/dL (0.70-1.30); SODIUM 142 mmol/L (136-145); TOTAL PROTEIN 7.5 g/dL (6.4-8.2); eGFR NON BLACK RACES > 60 (>60)
[2019-03-07] MEDS: K-DUR TAB 20 MEQ PO PRN (07:30)
[2019-03-07] MEDS: COREG TAB 25 MG PO SCH ×2 (08:00→21:21)
[2019-03-07] MEDS: FLOMAX PO SCH ×2 (08:00→21:21)
[2019-03-07] MEDS: NEURONTIN CAP 300 MG PO SCH (08:00)
[2019-03-07] MEDS: PLAVIX PO SCH (08:00)
[2019-03-07] MEDS: NORVASC TAB 5 MG PO SCH (08:00)
[2019-03-07] MEDS: LEVAQUIN PREMIX IV 500 MG 500 MG/100 ML BAG IV SCH (08:00)
[2019-03-07] MEDS: LIPITOR TAB 40 MG PO SCH (08:00)
[2019-03-07] MEDS: TRUSOPT PLUS (OPHTH) EACHEYE SCH ×2 (08:00→21:21)
[2019-03-07] MEDS: FORTAZ or TAZICEF VIAL INJ IVP SCH ×2 (08:00→21:22)
[2019-03-07] MEDS: CATAPRES TAB 0.1 MG PO SCH ×2 (08:00→21:20)
[2019-03-07] MEDS: DIOVAN TAB 80 MG PO SCH (08:00)
[2019-03-07] MEDS: MILK OF MAGNESIA PO SCH (08:00)
[2019-03-07] MEDS: PULMICORT NEB TX 0.5 MG NEB SCH ×2 (08:40→20:11)
[2019-03-07] MEDS ORDERED: XYLOCAINE 1 % (PLAIN) ONE (10:59)
--- NOTE | 2019-03-07 11:34 | RAD ---
History: PICC line placement Study: Portable AP chest Comparison: February 01, 2017 Findings: There is a left-sided PICC line with the tip in the SVC in good configuration. The right lung is hyperinflated and clear. There is left lower lateral pleural calcification as before. There is no pleural effusion. The heart size is prominent and unchanged. Impression: Satisfactory PICC line placement. 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
--- NOTE | 2019-03-07 11:43 | DR.UPDATE ---
H&P Update History and Physical Update: History and Physical reviewed and patient examined. Changes noted: NO Yes with the following:Agre with H&P. Will place PICC for long-term abx therapy Procedures (ALL) - Central Line Placement PCM.CLCO: written consent Time out performed: Yes Patient placed pm monitor/pulse ox: Yes prep: mask, gown, gloves, other Centrial line prep: chlorhexidine scrub Local anesthsia used: lidocane 1% (2cc) Ultrasound used for placement: Yes (left brachial id'd via ultrasound. unable to visualize basilic.) Central line lumen ininserted: double (5fr PowerPicc. trimmed to 45cm. 0cm exposed) Post procedure: good blood return, all ports aspirated, flushed,capped, sterile dressing applied Post procedure xray: tip oc catheter in good position Patient tolerated procedure: Yes Complications: none
[2019-03-07] MEDS: COLACE CAP 100 MG PO SCH (21:21)
[2019-03-07] MEDS: XALATAN EACHEYE SCH (21:22)
[2019-03-08 06:25] LABS: BASOPHILS % (AUTO) 0.6 % (0.2-1.0); EOSINOPHILS # (AUTO) 0.4 x10^3/uL (0.0-0.2); EOSINOPHILS % (AUTO) 7.3 % (0.9-2.9); HEMATOCRIT 32.3 % (42.0-54.0); HEMOGLOBIN 10.5 g/dL (13.5-18.0); LYMPHOCYTES # (AUTO) 1.9 X10^3/uL (1.3-2.9); LYMPHOCYTES % (AUTO) 32.6 % (21.0-51.0); MEAN CORPUSCULAR HEMOGLOBIN 28.8 pg (27.0-34.0); MEAN CORPUSCULAR HGB CONC 32.5 g/dL (33.0-35.0); MEAN CORPUSCULAR VOLUME 88.7 fL (80.0-100.0); MEAN PLATELET VOLUME 7.7 fL (7.4-11.0); MONOCYTES # (AUTO) 0.6 x10^3/uL (0.3-0.8); MONOCYTES % (AUTO) 9.9 % (0.0-13.0); NEUTROPHILS # (AUTO) 2.8 x10^3/uL (2.2-4.8); NEUTROPHILS % (AUTO) 49.6 % (42.0-75.0); PLATELET COUNT 188 X10^3/uL (150.0-450.0); RED BLOOD COUNT 3.64 X10^6/uL (4.7-6.0); RED CELL DISTRIBUTION WIDTH 16.3 % (11.6-16.5); WHITE BLOOD COUNT 5.7 X10^3/uL (3.6-10.0)
[2019-03-08 06:39] LABS: ALANINE AMINOTRANSFERASE 8 Units/L (12-78); ALBUMIN 2.4 g/dL (3.4-5.0); ALKALINE PHOSPHATASE 120 Units/L (46-116); ASPARTATE AMINO TRANSFERASE 12 Units/L (15-37); BLOOD UREA NITROGEN 10 mg/dL (7-18); CALCIUM 8.3 mg/dL (8.5-10.1); CHLORIDE 105 mmol/L (98-107); COR CA(FOR HYPOALB) 9.6 mg/dL (8.5-10.1); CREATININE 0.77 mg/dL (0.70-1.30); MAGNESIUM 1.7 mg/dL (1.7-2.9); SODIUM 140 mmol/L (136-145); TOTAL PROTEIN 7.8 g/dL (6.4-8.2); eGFR NON BLACK RACES > 60 (>60)
[2019-03-08] MEDS: PULMICORT NEB TX 0.5 MG NEB SCH ×2 (08:10→20:07)
[2019-03-08] MEDS ORDERED: NS 50 ML IV 50 ML ONE (08:44)
[2019-03-08] MEDS: FORTAZ or TAZICEF VIAL INJ IVP SCH (09:15)
[2019-03-08] MEDS: COREG TAB 25 MG PO SCH ×2 (09:16→21:04)
[2019-03-08] MEDS: LIPITOR TAB 40 MG PO SCH (09:16)
[2019-03-08] MEDS: LEVAQUIN PREMIX IV 500 MG 500 MG/100 ML BAG IV SCH (09:16)
[2019-03-08] MEDS: MILK OF MAGNESIA PO SCH (09:16)
[2019-03-08] MEDS: NORVASC TAB 5 MG PO SCH (09:16)
[2019-03-08] MEDS: NEURONTIN CAP 300 MG PO SCH (09:16)
[2019-03-08] MEDS: DIOVAN TAB 80 MG PO SCH (09:16)
[2019-03-08] MEDS: CATAPRES TAB 0.1 MG PO SCH ×2 (09:16→21:05)
[2019-03-08] MEDS: FLOMAX PO SCH ×2 (09:16→21:04)
[2019-03-08] MEDS: PLAVIX PO SCH (09:17)
[2019-03-08] MEDS: TRUSOPT PLUS (OPHTH) EACHEYE SCH ×2 (11:08→21:03)
--- NOTE | 2019-03-08 20:14 | DR.PROGNOT ---
Hospital Progress Notes - Progress Note for Day of: Progress Note Date: 03/08/19 - Chief Complaint Chief Complaint: moderate drainage from Lt leg incision . s/p debridement and packing . afebrile . positive MRSA from the Lt AKA incision. - Past Medical Family Social History Past Med/Fam/Surg Hx: No changes since H&P Allergies: Allergies MONIKA Inhibitors Allergy (Verified 03/03/19 10:33) - Review Of Systems ROS: No change since H&P - Vital Signs Vital Signs: Temperature 98.7 F Pulse Rate [Left Brachial] 78 Pulse Rate 67 Respiratory Rate 20 Blood Pressure [Left Arm] 141/83 Blood Pressure 167/70 O2 Sat by Pulse Oximetry 99 - Physical Exam Oriented: Normal Eyes: Normal Ear: Normal Nose: Normal Throat: Normal Respiratory: Diminished Cardiovascular: Normal : Normal GI:Auscultation: Normal GI:Palpation: Normal GI: Tenderness: Normal Skin: Wound (, Wound (dressing was changed , no necrosis or abscess . there was tunneling with deep pucket within the soft tissue ) Musculoskeletal: Left, Leg, Deformity (RIGHT BKA, LEFT AKA) Psychiatric: Anxiety Affect: Anxious Speech Pattern: Clear, Appropriate - Laboratory and Diagnostics Result Diagrams: 03/08/19 06:05 03/08/19 06:05 Labs: 03/05/19 12:20 Leg - Left Gram Stain - Final 03/05/19 12:20 Leg - Left Wound Culture - Final Proteus Mirabilis Methicillin Resis Staph Aureus 03/03/19 12:15 Blood Blood Culture - Preliminary 03/03/19 12:10 Blood Blood Culture - Preliminary 03/03/19 12:12 Leg - Left Gram Stain - Final 03/03/19 12:12 Leg - Left Wound Culture - Final Proteus Mirabilis Acinetobacter Baumanii/Haemoly Laboratory WBC 5.7 X10^3/uL (3.6-10.0) 03/08/19 06:05 RBC 3.64 X10^6/uL (4.7-6.0) L 03/08/19 06:05 Hgb 10.5 g/dL (13.5-18.0) L 03/08/19 06:05 Hct 32.3 % (42.0-54.0) L 03/08/19 06:05 MCV 88.7 fL (80.0-100.0) 03/08/19 06:05 MCH 28.8 pg (27.0-34.0) 03/08/19 06:05 MCHC 32.5 g/dL (33.0-35.0) L 03/08/19 06:05 RDW 16.3 % (11.6-16.5) 03/08/19 06:05 Plt Count 188 X10^3/uL (150.0-450.0) 03/08/19 06:05 MPV 7.7 fL (7.4-11.0) 03/08/19 06:05 Neut % (Auto) 49.6 % (42.0-75.0) 03/08/19 06:05 Lymph % (Auto) 32.6 % (21.0-51.0) 03/08/19 06:05 [place] % (Auto) 9.9 % (0.0-13.0) 03/08/19 06:05 Eos % (Auto) 7.3 % (0.9-2.9) H 03/08/19 06:05 Baso % (Auto) 0.6 % (0.2-1.0) 03/08/19 06:05 Neut # (Auto) 2.8 x10^3/uL (2.2-4.8) 03/08/19 06:05 Lymph # (Auto) 1.9 X10^3/uL (1.3-2.9) 03/08/19 06:05 [place] # (Auto) 0.6 x10^3/uL (0.3-0.8) 03/08/19 06:05 Eos # (Auto) 0.4 x10^3/uL (0.0-0.2) H 03/08/19 06:05 Baso # (Auto) 0.0 X10^3/uL (0.0-0.1) 03/08/19 06:05 Absolute Nucleated RBC 0.0 /100WBC 03/08/19 06:05 ESR 58 MM/HOUR (0-15) H 03/03/19 12:10 Sodium 140 mmol/L (136-145) 03/08/19 06:05 Corrected Sodium TNP 03/08/19 06:05 Potassium 3.7 mmol/L (3.5-5.1) 03/08/19 06:05 Chloride 105 mmol/L (98-107) 03/08/19 06:05 Carbon Dioxide 28.0 mmol/L (21-32) 03/08/19 06:05 BUN 10 mg/dL (7-18) 03/08/19 06:05 Creatinine 0.77 mg/dL (0.70-1.30) 03/08/19 06:05 Est GFR (MDRD) Af Amer > 60 (>60) 03/08/19 06:05 Est GFR (MDRD) Non-Af > 60 (>60) 03/08/19 06:05 Glucose 95 mg/dL (65-99) 03/08/19 06:05 Calcium 8.3 mg/dL (8.5-10.1) L 03/08/19 06:05 Corrected Calcium 9.6 mg/dL (8.5-10.1) 03/08/19 06:05 Magnesium 1.7 mg/dL (1.7-2.9) 03/08/19 06:05 Total Bilirubin 0.30 mg/dL (0.2-1.0) 03/08/19 06:05 AST 12 Units/L (15-37) L 03/08/19 06:05 ALT 8 Units/L (12-78) L 03/08/19 06:05 Alkaline Phosphatase 120 Units/L (46-116) H 03/08/19 06:05 C-Reactive Protein 26.50 mg/L (0-3.0) H 03/03/19 12:10 Total Protein 7.8 g/dL (6.4-8.2) 03/08/19 06:05 Albumin 2.4 g/dL (3.4-5.0) L 03/08/19 06:05 Globulin 5.4 g/dL (2.5-4.5) H 03/08/19 06:05 Albumin/Globulin Ratio 0.4 Ratio (1.1-2.1) L 03/08/19 06:05 Specimen Type Random urine 03/03/19 12:07 Urine Color Yellow (YELLOW) 03/03/19 12:07 Urine Appearance Hazy (CLEAR) 03/03/19 12:07 Urine pH 5.0 (5.0 - 8.0) 03/03/19 12:07 Ur Specific [place] 1.025 (1.000-1.030) 03/03/19 12:07 Urine Protein 2+ (NEGATIVE) 03/03/19 12:07 Urine Glucose (UA) Negative (NEGATIVE) 03/03/19 12:07 Urine Ketones Negative (NEGATIVE) 03/03/19 12:07 Urine Occult Blood 4+ (NEGATIVE) 03/03/19 12:07 Urine Nitrite Negative (NEGATIVE) 03/03/19 12:07 Urine Bilirubin Negative (NEGATIVE) 03/03/19 12:07 Urine Urobilinogen 1+ (NORMAL) 03/03/19 12:07 Ur Leukocyte Esterase 2+ (NEGATIVE) 03/03/19 12:07 Urine RBC 5-10 /HPF (0-3) A 03/03/19 12:07 Urine WBC 3-5 /HPF (0-5) 03/03/19 12:07 Ur Squamous Epith Cells Negative /HPF (NEGATIVE) 03/03/19 12:07 Urine Bacteria Negative /HPF (NEGATIVE) 03/03/19 12:07 Urine Mucus Few /HPF (NEGATIVE) 03/03/19 12:07 Urine Yeast Rare /HPF (NEGATIVE) 03/03/19 12:07 Ur Culture Indicated? No/not indicated 03/03/19 12:07 Random Vancomycin 6.3 ug/mL 03/04/19 19:38 Tissue Pathology To follow 03/05/19 12:28 - Assessment and Plan 1: post op debridement Lt AKA incision . surgical wound infection possible osteomyelitis ( recent surgery will be positive on bone scan ). needs IV ATB and wound vac a home . - Problem Patient Problems: Patient Problems Osteitis (Acute) M86.9 Osteomyelitis (Acute) M86.9 Amputation stump infection (Acute) T87.40 PAD (peripheral artery disease) (Acute) I73.9
[2019-03-08] MEDS: INVANZ INJ 1 GM VIAL 1 GM in NS 100 ML IV + SPIKE MINIBAG* 100 ML IV SCH (21:03)
[2019-03-08] MEDS: BACTRIM DS TAB PO SCH (21:03)
[2019-03-08] MEDS: COLACE CAP 100 MG PO SCH (21:04)
[2019-03-08] MEDS: XALATAN EACHEYE SCH (21:04)
[2019-03-09 05:57] LABS: BASOPHILS % (AUTO) 0.4 % (0.2-1.0); EOSINOPHILS # (AUTO) 0.4 x10^3/uL (0.0-0.2); EOSINOPHILS % (AUTO) 7.8 % (0.9-2.9); HEMATOCRIT 31.8 % (42.0-54.0); HEMOGLOBIN 10.3 g/dL (13.5-18.0); LYMPHOCYTES # (AUTO) 2.1 X10^3/uL (1.3-2.9); LYMPHOCYTES % (AUTO) 38.7 % (21.0-51.0); MEAN CORPUSCULAR HEMOGLOBIN 28.8 pg (27.0-34.0); MEAN CORPUSCULAR HGB CONC 32.3 g/dL (33.0-35.0); MEAN PLATELET VOLUME 7.9 fL (7.4-11.0); MONOCYTES # (AUTO) 0.6 x10^3/uL (0.3-0.8); MONOCYTES % (AUTO) 10.8 % (0.0-13.0); NEUTROPHILS # (AUTO) 2.3 x10^3/uL (2.2-4.8); NEUTROPHILS % (AUTO) 42.3 % (42.0-75.0); PLATELET COUNT 190 X10^3/uL (150.0-450.0); RED BLOOD COUNT 3.58 X10^6/uL (4.7-6.0); RED CELL DISTRIBUTION WIDTH 16.4 % (11.6-16.5); WHITE BLOOD COUNT 5.3 X10^3/uL (3.6-10.0)
[2019-03-09 06:02] LABS: ALANINE AMINOTRANSFERASE 7 Units/L (12-78); ALBUMIN 2.3 g/dL (3.4-5.0); ALKALINE PHOSPHATASE 117 Units/L (46-116); ASPARTATE AMINO TRANSFERASE 11 Units/L (15-37); BLOOD UREA NITROGEN 12 mg/dL (7-18); CALCIUM 8.1 mg/dL (8.5-10.1); CHLORIDE 105 mmol/L (98-107); COR CA(FOR HYPOALB) 9.5 mg/dL (8.5-10.1); CREATININE 0.82 mg/dL (0.70-1.30); SODIUM 139 mmol/L (136-145); TOTAL PROTEIN 7.6 g/dL (6.4-8.2); eGFR NON BLACK RACES > 60 (>60)
[2019-03-09] MEDS: PULMICORT NEB TX 0.5 MG NEB SCH ×2 (08:43→20:10)
[2019-03-09] MEDS: TRUSOPT PLUS (OPHTH) EACHEYE SCH ×2 (09:00→21:08)
[2019-03-09] MEDS: BACTRIM DS TAB PO SCH ×2 (09:16→21:07)
[2019-03-09] MEDS: DIOVAN TAB 80 MG PO SCH (09:16)
[2019-03-09] MEDS: COREG TAB 25 MG PO SCH ×2 (09:16→21:08)
[2019-03-09] MEDS: CATAPRES TAB 0.1 MG PO SCH ×2 (09:16→21:07)
[2019-03-09] MEDS: LEVAQUIN PREMIX IV 500 MG 500 MG/100 ML BAG IV SCH (09:17)
[2019-03-09] MEDS: INVANZ INJ 1 GM VIAL 1 GM in NS 100 ML IV + SPIKE MINIBAG* 100 ML IV SCH (09:17)
[2019-03-09] MEDS: FLOMAX PO SCH ×2 (09:17→21:07)
[2019-03-09] MEDS: LIPITOR TAB 40 MG PO SCH (09:18)
[2019-03-09] MEDS: NORVASC TAB 5 MG PO SCH (09:18)
[2019-03-09] MEDS: NEURONTIN CAP 300 MG PO SCH (09:18)
[2019-03-09] MEDS: MILK OF MAGNESIA PO SCH (09:18)
[2019-03-09] MEDS: PLAVIX PO SCH (09:19)
--- NOTE | 2019-03-09 09:23 | DR.PROGNOT ---
Hospital Progress Notes - Progress Note for Day of: Progress Note Date: 03/09/19 - Chief Complaint Chief Complaint: moderate drainage from Lt leg incision . s/p debridement and packing . afebrile . positive MRSA from the Lt AKA incision. - Past Medical Family Social History Past Med/Fam/Surg Hx: No changes since H&P Allergies: Allergies MONIKA Inhibitors Allergy (Verified 03/03/19 10:33) - Review Of Systems ROS: No change since H&P - Vital Signs Vital Signs: Temperature 98.1 F Pulse Rate [Left Brachial] 78 Pulse Rate 64 Respiratory Rate 22 Blood Pressure [Left Arm] 141/83 Blood Pressure 135/66 O2 Sat by Pulse Oximetry 99 - Physical Exam Oriented: Normal Eyes: Normal Ear: Normal Nose: Normal Throat: Normal Respiratory: Diminished Cardiovascular: Normal : Normal GI:Auscultation: Normal GI:Palpation: Normal GI: Tenderness: Normal Skin: Wound (, Wound (dressing was changed , no necrosis or abscess . there was tunneling with deep pucket within the soft tissue ) Musculoskeletal: Left, Leg, Deformity (RIGHT BKA, LEFT AKA) Psychiatric: Anxiety Affect: Anxious Speech Pattern: Clear, Appropriate - Laboratory and Diagnostics Result Diagrams: 03/09/19 04:25 03/09/19 04:25 Labs: 03/03/19 12:15 Blood Blood Culture - Final 03/03/19 12:10 Blood Blood Culture - Final 03/05/19 12:20 Leg - Left Gram Stain - Final 03/05/19 12:20 Leg - Left Wound Culture - Final Proteus Mirabilis Methicillin Resis Staph Aureus 03/03/19 12:12 Leg - Left Gram Stain - Final 03/03/19 12:12 Leg - Left Wound Culture - Final Proteus Mirabilis Acinetobacter Baumanii/Haemoly Laboratory WBC 5.3 X10^3/uL (3.6-10.0) 03/09/19 04:25 RBC 3.58 X10^6/uL (4.7-6.0) L 03/09/19 04:25 Hgb 10.3 g/dL (13.5-18.0) L 03/09/19 04:25 Hct 31.8 % (42.0-54.0) L 03/09/19 04:25 MCV 89.0 fL (80.0-100.0) 03/09/19 04:25 MCH 28.8 pg (27.0-34.0) 03/09/19 04:25 MCHC 32.3 g/dL (33.0-35.0) L 03/09/19 04:25 RDW 16.4 % (11.6-16.5) 03/09/19 04:25 Plt Count 190 X10^3/uL (150.0-450.0) 03/09/19 04:25 MPV 7.9 fL (7.4-11.0) 03/09/19 04:25 Neut % (Auto) 42.3 % (42.0-75.0) 03/09/19 04:25 Lymph % (Auto) 38.7 % (21.0-51.0) 03/09/19 04:25 [place] % (Auto) 10.8 % (0.0-13.0) 03/09/19 04:25 Eos % (Auto) 7.8 % (0.9-2.9) H 03/09/19 04:25 Baso % (Auto) 0.4 % (0.2-1.0) 03/09/19 04:25 Neut # (Auto) 2.3 x10^3/uL (2.2-4.8) 03/09/19 04:25 Lymph # (Auto) 2.1 X10^3/uL (1.3-2.9) 03/09/19 04:25 [place] # (Auto) 0.6 x10^3/uL (0.3-0.8) 03/09/19 04:25 Eos # (Auto) 0.4 x10^3/uL (0.0-0.2) H 03/09/19 04:25 Baso # (Auto) 0.0 X10^3/uL (0.0-0.1) 03/09/19 04:25 Absolute Nucleated RBC 0.1 /100WBC 03/09/19 04:25 ESR 58 MM/HOUR (0-15) H 03/03/19 12:10 Sodium 139 mmol/L (136-145) 03/09/19 04:25 Corrected Sodium TNP 03/09/19 04:25 Potassium 3.8 mmol/L (3.5-5.1) 03/09/19 04:25 Chloride 105 mmol/L (98-107) 03/09/19 04:25 Carbon Dioxide 28.0 mmol/L (21-32) 03/09/19 04:25 BUN 12 mg/dL (7-18) 03/09/19 04:25 Creatinine 0.82 mg/dL (0.70-1.30) 03/09/19 04:25 Est GFR (MDRD) Af Amer > 60 (>60) 03/09/19 04:25 Est GFR (MDRD) Non-Af > 60 (>60) 03/09/19 04:25 Glucose 96 mg/dL (65-99) 03/09/19 04:25 Calcium 8.1 mg/dL (8.5-10.1) L 03/09/19 04:25 Corrected Calcium 9.5 mg/dL (8.5-10.1) 03/09/19 04:25 Magnesium 1.7 mg/dL (1.7-2.9) 03/08/19 06:05 Total Bilirubin 0.20 mg/dL (0.2-1.0) 03/09/19 04:25 AST 11 Units/L (15-37) L 03/09/19 04:25 ALT 7 Units/L (12-78) L 03/09/19 04:25 Alkaline Phosphatase 117 Units/L (46-116) H 03/09/19 04:25 C-Reactive Protein 26.50 mg/L (0-3.0) H 03/03/19 12:10 Total Protein 7.6 g/dL (6.4-8.2) 03/09/19 04:25 Albumin 2.3 g/dL (3.4-5.0) L 03/09/19 04:25 Globulin 5.3 g/dL (2.5-4.5) H 03/09/19 04:25 Albumin/Globulin Ratio 0.4 Ratio (1.1-2.1) L 03/09/19 04:25 Specimen Type Random urine 03/03/19 12:07 Urine Color Yellow (YELLOW) 03/03/19 12:07 Urine Appearance Hazy (CLEAR) 03/03/19 12:07 Urine pH 5.0 (5.0 - 8.0) 03/03/19 12:07 Ur Specific [place] 1.025 (1.000-1.030) 03/03/19 12:07 Urine Protein 2+ (NEGATIVE) 03/03/19 12:07 Urine Glucose (UA) Negative (NEGATIVE) 03/03/19 12:07 Urine Ketones Negative (NEGATIVE) 03/03/19 12:07 Urine Occult Blood 4+ (NEGATIVE) 03/03/19 12:07 Urine Nitrite Negative (NEGATIVE) 03/03/19 12:07 Urine Bilirubin Negative (NEGATIVE) 03/03/19 12:07 Urine Urobilinogen 1+ (NORMAL) 03/03/19 12:07 Ur Leukocyte Esterase 2+ (NEGATIVE) 03/03/19 12:07 Urine RBC 5-10 /HPF (0-3) A 03/03/19 12:07 Urine WBC 3-5 /HPF (0-5) 03/03/19 12:07 Ur Squamous Epith Cells Negative /HPF (NEGATIVE) 03/03/19 12:07 Urine Bacteria Negative /HPF (NEGATIVE) 03/03/19 12:07 Urine Mucus Few /HPF (NEGATIVE) 03/03/19 12:07 Urine Yeast Rare /HPF (NEGATIVE) 03/03/19 12:07 Ur Culture Indicated? No/not indicated 03/03/19 12:07 Random Vancomycin 6.3 ug/mL 03/04/19 19:38 Tissue Pathology To follow 03/05/19 12:28 - Assessment and Plan 1: post op debridement Lt AKA incision . surgical wound infection possible osteomyelitis ( recent surgery will be positive on bone scan ). needs IV ATB and wound vac a home . will follow next week . - Problem Patient Problems: Patient Problems Osteitis (Acute) M86.9 Osteomyelitis (Acute) M86.9 Amputation stump infection (Acute) T87.40 PAD (peripheral artery disease) (Acute) I73.9
[2019-03-09] MEDS: COLACE CAP 100 MG PO SCH (21:08)
[2019-03-09] MEDS: XALATAN EACHEYE SCH (21:08)
[2019-03-10 05:42] LABS: BASOPHILS % (AUTO) 0.5 % (0.2-1.0); EOSINOPHILS # (AUTO) 0.5 x10^3/uL (0.0-0.2); EOSINOPHILS % (AUTO) 8.6 % (0.9-2.9); HEMATOCRIT 32.1 % (42.0-54.0); HEMOGLOBIN 10.4 g/dL (13.5-18.0); LYMPHOCYTES # (AUTO) 2.1 X10^3/uL (1.3-2.9); MEAN CORPUSCULAR HEMOGLOBIN 28.7 pg (27.0-34.0); MEAN CORPUSCULAR HGB CONC 32.4 g/dL (33.0-35.0); MEAN CORPUSCULAR VOLUME 88.7 fL (80.0-100.0); MONOCYTES # (AUTO) 0.5 x10^3/uL (0.3-0.8); NEUTROPHILS # (AUTO) 2.4 x10^3/uL (2.2-4.8); NEUTROPHILS % (AUTO) 42.9 % (42.0-75.0); PLATELET COUNT 189 X10^3/uL (150.0-450.0); RED BLOOD COUNT 3.62 X10^6/uL (4.7-6.0); RED CELL DISTRIBUTION WIDTH 16.3 % (11.6-16.5); WHITE BLOOD COUNT 5.5 X10^3/uL (3.6-10.0)
[2019-03-10 06:01] LABS: ALBUMIN 2.4 g/dL (3.4-5.0); ALKALINE PHOSPHATASE 107 Units/L (46-116); ASPARTATE AMINO TRANSFERASE 15 Units/L (15-37); BLOOD UREA NITROGEN 15 mg/dL (7-18); CALCIUM 8.3 mg/dL (8.5-10.1); CARBON DIOXIDE 26.6 mmol/L (21-32); CHLORIDE 104 mmol/L (98-107); COR CA(FOR HYPOALB) 9.6 mg/dL (8.5-10.1); CREATININE 0.93 mg/dL (0.70-1.30); SODIUM 138 mmol/L (136-145); TOTAL PROTEIN 7.8 g/dL (6.4-8.2); eGFR NON BLACK RACES > 60 (>60)
[2019-03-10 06:09] LABS: ALANINE AMINOTRANSFERASE 6 Units/L (12-78)
[2019-03-10] MEDS: LEVAQUIN PREMIX IV 500 MG 500 MG/100 ML BAG IV SCH (08:13)
[2019-03-10] MEDS: NORVASC TAB 5 MG PO SCH (08:13)
[2019-03-10] MEDS: INVANZ INJ 1 GM VIAL 1 GM in NS 100 ML IV + SPIKE MINIBAG* 100 ML IV SCH (08:13)
[2019-03-10] MEDS: CATAPRES TAB 0.1 MG PO SCH (08:14)
[2019-03-10] MEDS: DIOVAN TAB 80 MG PO SCH (08:14)
[2019-03-10] MEDS: FLOMAX PO SCH (08:14)
[2019-03-10] MEDS: BACTRIM DS TAB PO SCH (08:14)
[2019-03-10] MEDS: NEURONTIN CAP 300 MG PO SCH (08:14)
[2019-03-10] MEDS: COREG TAB 25 MG PO SCH (08:14)
[2019-03-10] MEDS: LIPITOR TAB 40 MG PO SCH (08:14)
[2019-03-10] MEDS: PLAVIX PO SCH (08:16)
[2019-03-10] MEDS: TRUSOPT PLUS (OPHTH) EACHEYE SCH (08:32)
[2019-03-10] MEDS: PULMICORT NEB TX 0.5 MG NEB SCH (08:48)
[2019-03-10] MEDS: MILK OF MAGNESIA PO SCH (09:35)
[2019-03-10 16:08] VITALS: BP 110/53
== END 2019-03-10 16:40 | disposition home health service (06) | DRG 464 ==
LOC: ER 10:28 → ICU 16:23
PROVIDERS: ADMIT Internal Medicine; ATTEND Internal Medicine
DX: T87.44 Infection of amputation stump, left lower extremity; I10 Essential (primary) hypertension; B96.4 Proteus (mirabilis) (morganii) as the cause of diseases classified elsewhere; Z89.612 Acquired absence of left leg above knee; B95.62 Methicillin resistant Staphylococcus aureus infection as the cause of diseases classified elsewhere; Z89.511 Acquired absence of right leg below knee; R70.0 Elevated erythrocyte sedimentation rate; M86.8X6 Other osteomyelitis, lower leg; I73.9 Peripheral vascular disease, unspecified; I87.2 Venous insufficiency (chronic) (peripheral); B96.89 Other specified bacterial agents as the cause of diseases classified elsewhere
CPT/HCPCS: 36415; 36569; 71010; 71045; 73560; 73706; 80053; 80202; 81001; 83735; 84132; 85025; 85652; 86140; 87040; 87070; 87075; 87077; 87186; 87205; 88305; 94640; 96365; 96374; 99100; 99221; 99284; A4222; J3490; J0713; J1335; J1956; J2250; J2270; J2704; J3370; J3475; J7050; J7060; J7626

== ENCOUNTER 2021-07-11 08:19 | Inpatient (IN) ==
[2021-07-11] MEDS ORDERED: LR 1,000 ML IV 1,000 ML IV ONE (08:38)
[2021-07-11] MEDS ORDERED: ANCEF 1 GRAM IV PREMIX* 1 G/50 ML BAG IV ONE (08:38)
[2021-07-11 09:43] VITALS: BMI 23.1
[2021-07-11] MEDS ORDERED: OFIRMEV IV 1000 MG VIAL 1,000 MG/100 ML VIAL IV ONE (10:34)
[2021-07-11] MEDS ORDERED: PEPCID 20 MG IV PREMIX* 50 ML IV ONE (10:34)
[2021-07-11] MEDS ORDERED: TORADOL 30 MG VIAL ONE (10:34)
[2021-07-11] MEDS ORDERED: FENTANYL VIAL INJ 100 mcg ONE (10:34)
[2021-07-11] MEDS ORDERED: DECADRON INJ ONE (10:35)
[2021-07-11] MEDS ORDERED: BETADINE SOLN ONE (11:10)
[2021-07-11] MEDS ORDERED: POLYMYXIN B SULFATE ONE (11:10)
[2021-07-11] MEDS ORDERED: KETAMINE HCL ONE (11:26)
[2021-07-11] MEDS ORDERED: XYLOCAINE 2 % (PLAIN) ONE (11:26)
[2021-07-11] MEDS ORDERED: DIPRIVAN VIAL ONE (11:26)
[2021-07-11] MEDS ORDERED: EPHEDRINE SULFATE INJ ONE (11:26)
[2021-07-11] MEDS ORDERED: VERSED ONE (11:26)
[2021-07-11] MEDS ORDERED: DEXMEDETOMIDINE 400 MCG/100 ML IV ONE (11:26)
[2021-07-11] MEDS ORDERED: ZOFRAN INJ 4 MG VIAL ONE (11:26)
[2021-07-11] MEDS ORDERED: ULTANE GAS IN ONE (12:34)
[2021-07-11] MEDS ORDERED: BARHEMSYS INJ IVP PRN (13:30)
[2021-07-11] MEDS ORDERED: PHENERGAN INJ 25 MG IM PRN (13:30)
[2021-07-11] MEDS ORDERED: BENADRYL INJ 50 MG VIAL IVP PRN (13:30)
[2021-07-11] MEDS ORDERED: DILAUDID INJ ONE (13:41)
[2021-07-11] MEDS: DILAUDID INJ IVP PRN ×3 (13:43→17:28)
[2021-07-11] MEDS ORDERED: NS 50 ML IV 50 ML IV ONE (14:35)
[2021-07-11] MEDS: ANCEF VIAL 1 GRAM IVP SCH ×2 (14:51→21:39)
[2021-07-11] MEDS: D5 1/2 NS 1,000 ML 1,000 ML IV SCH (14:51)
[2021-07-11] MEDS ORDERED: LINZESS PO SCH (18:00)
[2021-07-11] MEDS ORDERED: PriLOSEC PO SCH (18:00)
[2021-07-11] MEDS ORDERED: NORVASC TAB 5 MG PO SCH (18:00)
[2021-07-11] MEDS ORDERED: DIOVAN TAB 80 MG PO SCH (18:00)
[2021-07-11] MEDS: DIOVAN TAB 80 MG PO SCH (20:33)
[2021-07-11] MEDS: COREG TAB 25 MG PO SCH (20:34)
[2021-07-11] MEDS: ZANAFLEX PO SCH (20:34)
[2021-07-11] MEDS: LINZESS PO SCH (20:34)
[2021-07-11] MEDS: FLOMAX PO SCH (20:34)
[2021-07-11] MEDS: PriLOSEC PO SCH (20:34)
[2021-07-11] MEDS: ULTRAM PO SCH (20:35)
[2021-07-11] MEDS: NEURONTIN TAB 600 MG PO SCH (20:35)
[2021-07-11] MEDS: LIPITOR TAB 40 MG PO SCH (20:35)
[2021-07-11] MEDS: PLAVIX PO SCH (20:35)
[2021-07-11] MEDS: NORVASC TAB 5 MG PO SCH (20:36)
[2021-07-12] MEDS: DILAUDID INJ IVP PRN (03:11)
[2021-07-12] MEDS: D5 1/2 NS 1,000 ML 1,000 ML IV SCH ×3 (03:11→21:17)
[2021-07-12 06:19] LABS: BASOPHILS % (AUTO) 0.1 % (0.2-1.0); HEMATOCRIT 41.6 % (42.0-54.0); HEMOGLOBIN 13.7 g/dL (13.5-18.0); LYMPHOCYTES # (AUTO) 1.1 X10^3/uL (1.3-2.9); LYMPHOCYTES % (AUTO) 9.6 % (21.0-51.0); MEAN CORPUSCULAR HEMOGLOBIN 29.6 pg (27.0-34.0); MEAN CORPUSCULAR VOLUME 89.8 fL (80.0-100.0); MEAN PLATELET VOLUME 9.3 fL (7.4-11.0); MONOCYTES # (AUTO) 0.5 x10^3/uL (0.3-0.8); MONOCYTES % (AUTO) 4.7 % (0.0-13.0); NEUTROPHILS # (AUTO) 9.4 x10^3/uL (2.2-4.8); NEUTROPHILS % (AUTO) 85.6 % (42.0-75.0); PLATELET COUNT 177 X10^3/uL (150.0-450.0); RED BLOOD COUNT 4.63 X10^6/uL (4.7-6.0); RED CELL DISTRIBUTION WIDTH 14.3 % (11.6-16.5)
[2021-07-12] MEDS: ANCEF VIAL 1 GRAM IVP SCH ×3 (06:26→21:17)
[2021-07-12 06:28] LABS: ALANINE AMINOTRANSFERASE 13 Units/L (12-78); ALBUMIN 2.8 g/dL (3.4-5.0); ALKALINE PHOSPHATASE 120 Units/L (46-116); ASPARTATE AMINO TRANSFERASE 19 Units/L (15-37); BLOOD UREA NITROGEN 25 mg/dL (7-18); CALCIUM 8.5 mg/dL (8.5-10.1); CARBON DIOXIDE 26.1 mmol/L (21-32); CHLORIDE 105 mmol/L (98-107); COR CA(FOR HYPOALB) 9.5 mg/dL (8.5-10.1); COR NA(FOR HYPERGLY) 143 mmol/L (136-145); CREATININE 1.14 mg/dL (0.70-1.30); GLUCOSE 209 mg/dL (65-99); POTASSIUM 4.5 mmol/L (3.5-5.1); SODIUM 140 mmol/L (136-145); TOTAL PROTEIN 8.7 g/dL (6.4-8.2); eGFR NON BLACK RACES > 60 (>60)
[2021-07-12] MEDS: NORVASC TAB 5 MG PO SCH (08:45)
[2021-07-12] MEDS: DIOVAN TAB 80 MG PO SCH (08:45)
[2021-07-12] MEDS: COREG TAB 25 MG PO SCH ×2 (08:45→20:53)
[2021-07-12] MEDS: LIPITOR TAB 40 MG PO SCH (08:45)
[2021-07-12] MEDS: PLAVIX PO SCH (08:45)
[2021-07-12] MEDS: NEURONTIN TAB 600 MG PO SCH ×4 (08:45→20:54)
[2021-07-12] MEDS: LINZESS PO SCH (08:45)
[2021-07-12] MEDS: PriLOSEC PO SCH (08:47)
[2021-07-12] MEDS: ULTRAM PO SCH ×2 (08:47→20:55)
[2021-07-12] MEDS: LOVENOX INJ 40 MG SYR SC SCH (09:26)
--- NOTE | 2021-07-12 11:33 | DR.PROGNOT ---
Hospital Progress Notes - Progress Note for Day of: Progress Note Date: 07/12/21 - Chief Complaint Chief Complaint: c/o incisional pain . P/O revision of AKA . - Past Medical Family Social History Past Med/Fam/Surg Hx: No changes since H&P Allergies: Allergies MONIKA Inhibitors Allergy (Verified 09/13/19 18:43) - Review Of Systems ROS: No change since H&P - Vital Signs Vital Signs: Temperature 97.5 F Pulse Rate [Left Radial] 68 Pulse Rate 72 Respiratory Rate 16 Blood Pressure [Right Arm] 177/78 Blood Pressure 176/75 O2 Sat by Pulse Oximetry 99 - Physical Exam Oriented: Normal Eyes: Normal Ear: Normal Nose: Normal Respiratory: Normal Cardiovascular: Normal : Normal GI:Auscultation: Normal GI:Palpation: Normal GI: Tenderness: Normal Musculoskeletal: Left (s/p revision of AKA .. intact dressings) Speech Pattern: Clear, Appropriate - Laboratory and Diagnostics Result Diagrams: 07/12/21 05:35 07/12/21 05:25 Labs: 07/11/21 12:44 Leg - Left Wound Gram Stain - Final 07/11/21 12:44 Leg - Left Wound Culture - Preliminary Laboratory WBC 11.0 X10^3/uL (3.6-10.0) H 07/12/21 05:35 RBC 4.63 X10^6/uL (4.7-6.0) L 07/12/21 05:35 Hgb 13.7 g/dL (13.5-18.0) 07/12/21 05:35 Hct 41.6 % (42.0-54.0) L 07/12/21 05:35 MCV 89.8 fL (80.0-100.0) 07/12/21 05:35 MCH 29.6 pg (27.0-34.0) 07/12/21 05:35 MCHC 33.0 g/dL (33.0-35.0) 07/12/21 05:35 RDW 14.3 % (11.6-16.5) 07/12/21 05:35 Plt Count 177 X10^3/uL (150.0-450.0) 07/12/21 05:35 MPV 9.3 fL (7.4-11.0) 07/12/21 05:35 Neut % (Auto) 85.6 % (42.0-75.0) H 07/12/21 05:35 Lymph % (Auto) 9.6 % (21.0-51.0) L 07/12/21 05:35 [place] % (Auto) 4.7 % (0.0-13.0) 07/12/21 05:35 Eos % (Auto) 0.0 % (0.9-2.9) L 07/12/21 05:35 Baso % (Auto) 0.1 % (0.2-1.0) L 07/12/21 05:35 Neut # (Auto) 9.4 x10^3/uL (2.2-4.8) H 07/12/21 05:35 Lymph # (Auto) 1.1 X10^3/uL (1.3-2.9) L 07/12/21 05:35 [place] # (Auto) 0.5 x10^3/uL (0.3-0.8) 07/12/21 05:35 Eos # (Auto) 0.0 x10^3/uL (0.0-0.2) 07/12/21 05:35 Baso # (Auto) 0.0 X10^3/uL (0.0-0.1) 07/12/21 05:35 Absolute Nucleated RBC 0.0 /100WBC 07/12/21 05:35 Sodium 140 mmol/L (136-145) 07/12/21 05:25 Corrected Sodium 143 mmol/L (136-145) 07/12/21 05:25 Potassium 4.5 mmol/L (3.5-5.1) 07/12/21 05:25 Chloride 105 mmol/L (98-107) 07/12/21 05:25 Carbon Dioxide 26.1 mmol/L (21-32) 07/12/21 05:25 BUN 25 mg/dL (7-18) H 07/12/21 05:25 Creatinine 1.14 mg/dL (0.70-1.30) 07/12/21 05:25 Est GFR (MDRD) Af Amer > 60 (>60) 07/12/21 05:25 Est GFR (MDRD) Non-Af > 60 (>60) 07/12/21 05:25 Glucose 209 mg/dL (65-99) H 07/12/21 05:25 Calcium 8.5 mg/dL (8.5-10.1) 07/12/21 05:25 Corrected Calcium 9.5 mg/dL (8.5-10.1) 07/12/21 05:25 Total Bilirubin 0.30 mg/dL (0.2-1.0) 07/12/21 05:25 AST 19 Units/L (15-37) 07/12/21 05:25 ALT 13 Units/L (12-78) 07/12/21 05:25 Alkaline Phosphatase 120 Units/L (46-116) H 07/12/21 05:25 Total Protein 8.7 g/dL (6.4-8.2) H 07/12/21 05:25 Albumin 2.8 g/dL (3.4-5.0) L 07/12/21 05:25 Globulin 5.9 g/dL (2.5-4.5) H 07/12/21 05:25 Albumin/Globulin Ratio 0.5 Ratio (1.1-2.1) L 07/12/21 05:25 Tissue Pathology To follow 07/11/21 12:15 - Assessment and Plan 2: s/p revision of AKA . PVD . HTN . same PO care ..
[2021-07-12] MEDS: FLOMAX PO SCH (20:53)
[2021-07-12] MEDS: ZANAFLEX PO SCH (20:53)
[2021-07-13 05:08] VITALS: PULSE 58; O2SAT 98
[2021-07-13] MEDS: ANCEF VIAL 1 GRAM IVP SCH (05:24)
[2021-07-13] MEDS: D5 1/2 NS 1,000 ML 1,000 ML IV SCH (05:24)
[2021-07-13 06:41] LABS: BASOPHILS % (AUTO) 0.2 % (0.2-1.0); EOSINOPHILS # (AUTO) 0.2 x10^3/uL (0.0-0.2); EOSINOPHILS % (AUTO) 2.1 % (0.9-2.9); HEMATOCRIT 34.7 % (42.0-54.0); HEMOGLOBIN 11.2 g/dL (13.5-18.0); LYMPHOCYTES # (AUTO) 1.5 X10^3/uL (1.3-2.9); LYMPHOCYTES % (AUTO) 13.6 % (21.0-51.0); MEAN CORPUSCULAR HEMOGLOBIN 29.1 pg (27.0-34.0); MEAN CORPUSCULAR HGB CONC 32.3 g/dL (33.0-35.0); MEAN PLATELET VOLUME 9.8 fL (7.4-11.0); MONOCYTES # (AUTO) 1.2 x10^3/uL (0.3-0.8); MONOCYTES % (AUTO) 10.4 % (0.0-13.0); NEUTROPHILS # (AUTO) 8.2 x10^3/uL (2.2-4.8); NEUTROPHILS % (AUTO) 73.7 % (42.0-75.0); PLATELET COUNT 140 X10^3/uL (150.0-450.0); RED BLOOD COUNT 3.85 X10^6/uL (4.7-6.0); RED CELL DISTRIBUTION WIDTH 14.4 % (11.6-16.5); WHITE BLOOD COUNT 11.2 X10^3/uL (3.6-10.0)
[2021-07-13 06:58] LABS: ALANINE AMINOTRANSFERASE 8 Units/L (12-78); ALBUMIN 2.4 g/dL (3.4-5.0); ALKALINE PHOSPHATASE 135 Units/L (46-116); ASPARTATE AMINO TRANSFERASE 19 Units/L (15-37); BLOOD UREA NITROGEN 26 mg/dL (7-18); CALCIUM 7.6 mg/dL (8.5-10.1); CARBON DIOXIDE 26.5 mmol/L (21-32); CHLORIDE 110 mmol/L (98-107); COR CA(FOR HYPOALB) 8.9 mg/dL (8.5-10.1); COR NA(FOR HYPERGLY) 145 mmol/L (136-145); CREATININE 1.04 mg/dL (0.70-1.30); GLUCOSE 134 mg/dL (65-99); POTASSIUM 4.3 mmol/L (3.5-5.1); SODIUM 144 mmol/L (136-145); TOTAL PROTEIN 7.1 g/dL (6.4-8.2); eGFR NON BLACK RACES > 60 (>60)
[2021-07-13] MEDS: COREG TAB 25 MG PO SCH (08:41)
[2021-07-13] MEDS: DIOVAN TAB 80 MG PO SCH (08:41)
[2021-07-13] MEDS: LINZESS PO SCH (08:41)
[2021-07-13] MEDS: LOVENOX INJ 40 MG SYR SC SCH (08:42)
[2021-07-13] MEDS: LIPITOR TAB 40 MG PO SCH (08:42)
[2021-07-13] MEDS: NORVASC TAB 5 MG PO SCH (08:43)
[2021-07-13] MEDS: NEURONTIN TAB 600 MG PO SCH (08:43)
[2021-07-13] MEDS: PLAVIX PO SCH (08:43)
[2021-07-13] MEDS: PriLOSEC PO SCH (08:44)
[2021-07-13] MEDS: ULTRAM PO SCH (08:44)
[2021-07-13 11:55] VITALS: BP 160/71; TEMP 98.4
== END 2021-07-13 11:30 | disposition home health service (06) ==
LOC: MED/SURG 08:19
PROVIDERS: ADMIT Surgery; ATTEND Surgery